=== PATIENT | female | born 1960 | race Caucasian/White ===

== ENCOUNTER 2023-04-23 12:39 | Emergency (ER) | payer BC, SELFPAY ==
[2023-04-23 12:56] VITALS: BP 142/85; PULSE 88; RESP 16; TEMP 36.8; O2SAT 95; BMI 24.3
--- NOTE | 2023-04-23 13:26 | CRLHL7_ITS ---
For Patients: As a result of the Century Cures Act, medical imaging exams and procedure reports are released immediately into your electronic medical record. You may view this report before your referring provider. If you have questions, please contact your health care provider. CLINICAL HISTORY: Left-sided facial numbness for 1 week. TECHNIQUE: Standard helical CT image acquisition of the brain was performed. COMPARISON: None available. FINDINGS: There is no intracranial hemorrhage, extra-axial collection, mass effect, or midline shift. Doty-white matter differentiation is preserved. The ventricles are normal in size and morphology for patient age. The calvarium is unremarkable. The orbits are unremarkable. The paranasal sinuses are unremarkable. The mastoid air cells are unremarkable. IMPRESSION: No CT evidence of acute intracranial abnormality. Please note that all CT scans at this facility use dose modulation, iterative reconstruction, and/or weight-based dosing when appropriate to reduce radiation dose to as low as reasonably achievable. Dictated by Hoang Ariza MD @ 04/23/2023 2:41:44 PM (Electronically Signed)
--- NOTE | 2023-04-23 13:26 | CRLHL7_ITS ---
For Patients: As a result of the Century Cures Act, medical imaging exams and procedure reports are released immediately into your electronic medical record. You may view this report before your referring provider. If you have questions, please contact your health care provider. CLINICAL HISTORY: Left-sided facial numbness for 1 week. TECHNIQUE: CTA neck with contrast bolus tracking. 3D angiographic rendering using maximum intensity projection (MIP) and images permanently archived. COMPARISON: None available. FINDINGS: The great vessels are patent. The common carotid arteries are patent. The proximal ICAs are patent without signficant stenoses by NASCET criteria. The more distal cervical ICAs are patent. The origins of the vertebral arteries are patent. The cervical segments of the vertebral arteries are patent. IMPRESSION: Patent cervical arterial vasculature without hemodynamically significant luminal stenosis. Please note that all CT scans at this facility use dose modulation, iterative reconstruction, and/or weight-based dosing when appropriate to reduce radiation dose to as low as reasonably achievable. Dictated by Hoang Ariza MD @ 04/23/2023 2:44:33 PM (Electronically Signed)
--- NOTE | 2023-04-23 13:26 | CRLHL7_ITS ---
For Patients: As a result of the Century Cures Act, medical imaging exams and procedure reports are released immediately into your electronic medical record. You may view this report before your referring provider. If you have questions, please contact your health care provider. CLINICAL HISTORY: Left-sided facial numbness for 1 week. TECHNIQUE: CTA head with contrast bolus tracking. 3D angiographic rendering using maximum intensity projection (MIP) and images permanently archived. COMPARISON: None available. FINDINGS: The petrous, cavernous, and supraclinoid segments of the internal carotid arteries are patent. The anterior and middle cerebral arteries are patent. The anterior communicating artery is visualized and is within normal limits. The intracranial vertebral arteries, basilar trunk, and posterior cerebral arteries are patent. No intracranial proximal large vessel occlusion or flow-limiting luminal stenosis. No evidence of cerebral aneurysm. No findings to suggest an arterial-venous shunting lesion. The major dural venous sinuses and deep venous system were patent. IMPRESSION: No intracranial proximal large vessel occlusion, flow-limiting luminal stenosis, or cerebral aneurysm. Please note that all CT scans at this facility use dose modulation, iterative reconstruction, and/or weight-based dosing when appropriate to reduce radiation dose to as low as reasonably achievable. Dictated by Hoang Ariza MD @ 04/23/2023 2:47:15 PM (Electronically Signed)
--- OUTSIDE RECORDS SUMMARY | 2023-04-23 13:45 | XMS_ITS | Patient Health Record ---
Author Name Unknown Organization [facility] Address [address] [place], [place] [id number] Care Team Providers Care Pulverizer Feeder Name Role Phone Ana Vickers Primary Care Provider [phone] ALLERGIES Allergen (clinical drug ingredient) Drug/Non Drug Allergy documented on EMR Reaction Allergy Type Onset Date Status sulfamethoxazole / trimethoprim Sulfamethoxazole-T rimethoprim Anaphylaxis-Ba kers Yeast Drug Allergy Active tetracycline Tetracycline HCl Rash Drug Allergy Active REASON FOR REFERRAL No Information MEDICATIONS Medication SIG (Take, Route, Frequency, Duration) Notes Start Date End Date Status Multivitamin Adults - as directed Orally Active Biotin 800 MCG 1 tablet Orally Once a day for 30 day(s) Active Vitamin B12 1000 MCG 1 tablet Orally Once a day for 30 day(s) Active Cream Base - as directed Externally steroid cream for cutaneous lupus Active Misc Natural Product Progesteron e 150mg/Testosterone 0.5mg Trit, dissolve once daily Active Vitamin D3 1000 UNIT 1 tablet Orally Once a day for 30 day(s) Active Misc Natural Products - as directed Orally Bi Estradiol 2.75mg Trit, dissolve once daily Active SOCIAL HISTORY Tobacco Use: Social History Observation Description Date Details (start date - stop date) Never Smoker NA - NA Sex Assigned At : Social History Observation Description Sex Assigned At Unknown Tobacco Use/Smoking Question Answer Notes Are you a nonsmoker PROBLEMS Problem Type ICD Code Onset Dates Problem Status W/U Status Risk SNOMED Code Notes Problem Menopausal and female climacteric states (N95.1) Active confirmed [id number] PLAN OF TREATMENT No Information Insurance Providers Payer Name Payer Address Payer Phone Subscriber Number Group Number Insured Name Patient Relationship to Insured Coverage Start Date Coverage End Date [employer] [address] [address] [place], [place] [id number] Dawna Longoria Self - patient is the insured MEDICAL (GENERAL) HISTORY Medical History History ICD Code Cutaneous Lupus Borderline Diabetic Surgical History Surgery Date(Month/Year) Gall bladder removal 2017 Umbilical Hernia Repair with mesh Supra cervical Hysterectomy w/left oopha rectomy 2003
--- NOTE | 2023-04-23 13:48 | ED_ITS ---
HPI - Neuro Symptoms/Deficit General Date Seen: 04/23/23 Chief Complaint: Neuro Symptoms/Altered Deficit Stated Complaint: Numbness in face and L calf Time Seen by Provider: 04/23/23 13:09 Source: patient and family Mode of arrival: ambulatory Limitations: no limitations History of Present Illness HPI Narrative: Patient is a evelyne 62-year-old female presents here for evaluation of left-si ded facial numbness, intermittently, and left anterior briones altered sensation. She describes this is coming and going, not together. Mostly on the face. In the M 3 mandibular distribution. Not associated with any weakness any problems speaking, no pain of her face, any year discomfort, fevers chills or sweats, no past history of TIAs strokes, cardiac conditions. Her mother however does have a history of TIAs, her mother did smoke, but also had these and she was a little bit older than her. She is going on a trip to [facility], with her who is accompanying her, and they would like to get this checked out. She has noted no changes so seated with exertion. Or time of day. No history of diabetes hypertension, or other cardiac risk factors are history of heart disease. She does have a small history of back pain, but no documented disc issues. Treatments Prior to Arrival: none Related Data Home Medications Medication Instructions Recorded Confirmed alprazolam 0.5 mg tablet 0.5 mg PO BID PRN 07/06/22 04/23/23 cholecalciferol (vitamin D3) 50 50 mcg PO QDAY 07/06/22 04/23/23 mcg (2,000 unit) capsule cyanocobalamin (vitamin B-12) 500 500 mcg PO DAILY 07/06/22 04/23/23 mcg tablet hydrocortisone 2.5 % topical cream 1 applic topical BID PRN 01/10/23 04/23/23 pimecrolimus 1 % topical cream 1 applic topical PRN 01/10/23 01/10/23 Previous Rx's Medication Instructions Recorded lwqzzixhoz-pskfulmmzxxtn-rmzscyub 1 - 2 cap PO Q4-6H PRN pain #30 07/06/22 50 mg-300 mg-40 mg capsule caps Allergies Allergy/AdvReac Type Severity Reaction Status Date / Time Sulfa (Sulfonamide Allergy Severe Anaphylaxis Verified 04/23/23 14:23 Antibiotics) fluconazole Allergy Mild Hives Verified 04/23/23 14:23 tetracycline Allergy Mild Hives Verified 04/23/23 14:23 INHALANT ANESTHESIA Allergy Intermediate Severe Uncoded 04/23/23 14:23 nausea only Pertussis vaccine Allergy Unknown Son is Uncoded 04/23/23 14:23 severely allergic she was told not to get pertussis Clavulanate AdvReac Severe Vomiting Uncoded 04/23/23 14:23 Neostrata Bionic face cream AdvReac Intermediate Rash Uncoded 04/23/23 14:23 Review of Systems Status of ROS: Reports: 10 or more systems reviewed and unremarkable except as noted in History and below PFSH [facility] Medical History Preventative health care ?Z00.00 - Encounter for general adult medical examination without abnormal findings (ICD-10) Family history of von Willebrand disease ?Z83.2 - Family history of diseases of the blood and blood-forming organs and certain disorders involving the immune mechanism (ICD-10) Candidal vulvovaginitis ?B37.31 - Acute candidiasis of vulva and vagina (ICD-10) Vaginitis ?N76.0 - Acute vaginitis (ICD-10) Seborrheic keratosis ?L82.1 - Other seborrheic keratosis (ICD-10) Right shoulder pain ?M25.511 - Pain in right shoulder (ICD-10) Recurrent epistaxis ?R04.0 - Epistaxis (ICD-10) Mitral valve sclerosis ?I05.8 - Other rheumatic mitral valve diseases (ICD-10) Lupus erythematosus ?L93.0 - Discoid lupus erythematosus (ICD-10) Inflamed seborrheic keratosis ?L82.0 - Inflamed seborrheic keratosis (ICD-10) Encounter for examination following surgery ?Z09 - Encounter for follow-up examination after completed treatment for conditions other than malignant neoplasm (ICD-10) Surgical History S/P ORIF (open reduction internal fixation) fracture (09/01/21) ?Z98.890 - Other specified postprocedural states (ICD-10) ?Z87.81 - Personal history of (healed) traumatic fracture (ICD-10) History of umbilical hernia repair ?Z98.890 - Other specified postprocedural states (ICD-10) ?Z87.19 - Personal history of other diseases of the digestive system (ICD-10) History of laparoscopic cholecystectomy ?Z90.49 - Acquired absence of other specified parts of digestive tract (ICD- 10) History of hysterectomy with oophorectomy History of esophagogastroduodenoscopy (EGD) ?Z98.890 - Other specified postprocedural states (ICD-10) Family History Mother Breast cancer Stroke Diabetes High blood pressure Heart disease History of hyperlipidemia Family/Other Breast cancer Social History Narrative: Does not use illicit drugs Non-smoker Occasional alcohol consumption Smoking Status: Unknown if ever smoked Do you use any of these nicotine containing products: None Second hand tobacco smoke exposure: No How often do you have a drink containing alcohol: monthly or less AUDIT-C Alcohol total score: 1 Non-prescribed substance use: denies use Little interest or pleasure in doing things: not at all Feeling down, depressed, or hopeless: not at all Exam Narrative: Exam Narrative: Patient is a very nice lady she is seen in room 6 she appears to be in no distress she is eloquent and articulate when I review her. Her vital signs are normal. Pupils are equal round reactive to light there is no nystagmus, fundi appear normally. TMs are normal bilaterally no evidence of any redness rashes, she has sensation noted over the M1 through M 3 dermatomes, but it is a little bit different from lower to upper. She is able to whistle for me her tongue protrudes normally, and her cranial nerves of from 3-12 are normal. Carotid upstrokes are equal bilaterally and there is no bruits, her neck is supple, excellent range of motion and neck flexion extension lateral flexion rotation is normal, no palpable tenderness over her head. Her gravity meter observer strengths are normal bilaterally finger-nose testing is normal bilaterally, finger abduction is normal, wrist dorsiflexion 1st finger thumb opposition biceps triceps power and shoulder abduction are all normal. 5/5. Pulses are normal in upper extremities, her heart sounds are normal, no clicks murmurs or gallops, and nice and regular. Lower extremities show no evidence of any abnormality, muscle tone is and symmetry is normal bilaterally, SLR is are negative to 90? she is able to walk, with heels and toe for me normally, forward flexion extension lateral flexion and rotation of her lumbar spine are all normal. She has normal EHLs, great toe flexors, knee flexors 10 sirs and hip flexors, Const: Vital Signs, click to edit/add: Vital Signs - 24 hr 04/23/23 12:56 Temperature 98.3 F Pulse Rate [Pulse Oximeter] 88 Respiratory Rate 16 Blood Pressure [Ri ght Upper Arm] 142/85 H Pulse Oximetry 95 Oxygen Delivery Me thod Room Air Documenting provider has reviewed patient's vital signs: yes Course Course ED Course: I had a long talk with her examination is reassuring and she has paresthesias her face and lower leg. CT scan does not show any large vessel occlusion or any problem with the blood vessels, or tumors. I think it would be reasonable to have her follow-up with Neurology. Consider other alternative diagnosis is as says MS. She was comfortable with this. I do not think this is related to stroke-like situation. Vital Signs Vital signs: Initial Vital Signs Temperature 98.3 F 04/23/23 12:56 Temperature Source Temporal Artery Scan 04/23/23 12:56 Pulse Rate 88 04/23/23 12:56 Pulse Rhythm Regular 04/23/23 12:56 Respiratory Rate 16 04/23/23 12:56 Blood Pressure 142/85 H 04/23/23 12:56 Blood Pressure Mean 104 04/23/23 12:56 Blood Pressure Position Sitting 04/23/23 12:56 Pulse Oximetry 95 04/23/23 12:56 Oxygen Delivery Method Room Air 04/23/23 12:56 Vital Signs Temperature 98.3 F 04/23/23 12:56 Pulse Rate 88 04/23/23 12:56 Respiratory Rate 16 04/23/23 12:56 Blood Pressure 142/85 H 04/23/23 12:56 Pulse Oximetry 95 04/23/23 12:56 Oxygen Delivery Method Room Air 04/23/23 12:56 Temperature 98.3 F 04/23/23 12:56 Pulse Rate 88 04/23/23 12:56 Respiratory Rate 16 04/23/23 12:56 Blood Pressure 142/85 H 04/23/23 12:56 Pulse Oximetry 95 04/23/23 12:56 Oxygen Delivery Method Room Air 04/23/23 12:56 MDM - Neuro Symptoms/Deficit MDM Narrative Medical decision making narrative: I explained to her I do not see evidence of a stroke, would be purely sensory if this is on off. TIA. But I do think doing a head CT, with a CTA of head neck is appropriate. Medical Records Attestation: I reviewed the patient's medical records. Lab Data Attestation: I reviewed the patient's lab results. Labs: Lab Results 04/23/23 Range/Units 13:58 POC Creatinine 0.7 (0.6-1.3) mg/dl Imaging Data Head CT: Attestation: I have reviewed the pertinent imaging results. My impression: No acute change Radiologist's impression: Patient: [facility] Facility: [facility] . Site : 1960 Study: CT Head W/O NON ACUTE-04/23/2023 2:19:17 PM Ordering Physician: Katia Mclean Final Report: CLINICAL HISTORY: Left-sided facial numbness for 1 week. TECHNIQUE: Standard helical CT image acquisition of the brain was performed. COMPARISON: None available. FINDINGS: There is no intracranial hemorrhage, extra-axial collection, mass effect, or midline shift. Doty-white matter differentiation is preserved. The ventricles are normal in size and morphology for patient age. The calvarium is unremarkable. The orbits are unremarkable. The paranasal sinuses are unremarkable. The mastoid air cells are unremarkable. IMPRESSION: No CT evidence of acute intracranial abnormality. Please note that all CT scans at this facility use dose modulation, iterative reconstruction, and/or weight-based dosing when appropriate to reduce radiation dose to as low as reasonably achievable. Dictated by Hoang Ariza MD @ 04/23/2023 2:41:44 PM (Electronic Signature) Patient: [facility] Facility: [facility] . Site : 1960 Study: CT Neck Angio Angio 95 CC NON ACUTE-04/23/2023 2:20:18 PM Ordering Physician: Katia Mclean Final Report: CLINICAL HISTORY: Left-sided facial numbness for 1 week. TECHNIQUE: CTA neck with contrast bolus tracking. 3D angiographic rendering using maximum intensity projection (MIP) and images permanently archived. COMPARISON: None available. FINDINGS: The great vessels are patent. The common carotid arteries are patent. The proximal ICAs are patent without signficant stenoses by NASCET criteria. The more distal cervical ICAs are patent. The origins of the vertebral arteries are patent. The cervical segments of the vertebral arteries are patent. IMPRESSION: Patent cervical arterial vasculature without hemodynamically significant luminal stenosis. Please note that all CT scans at this facility use dose modulation, iterative reconstruction, and/or weight-based dosing when appropriate to reduce radiation dose to as low as reasonably achievable. Dictated by Hoang Ariza MD @ 04/23/2023 2:44:33 PM (Electronic Signature) Patient: MICHAELA YANEZ Facility: [facility] . Site : 1960 Study: CT Head Angio 95CC ISOVUE 370NON ACUTE-04/23/2023 2:21:34 PM Ordering Physician: Katia Mclean Final Report: CLINICAL HISTORY: Left-sided facial numbness for 1 week. TECHNIQUE: CTA head with contrast bolus tracking. 3D angiographic rendering using maximum intensity projection (MIP) and images permanently archived. COMPARISON: None available. FINDINGS: The petrous, cavernous, and supraclinoid segments of the internal carotid arteries are patent. The anterior and middle cerebral arteries are patent. The anterior communicating artery is visualized and is within normal limits. The intracranial vertebral arteries, basilar trunk, and posterior cerebral arteries are patent. No intracranial proximal large vessel occlusion or flow-limiting luminal stenosis. No evidence of cerebral aneurysm. No findings to suggest an arterial- venous shunting lesion. The major dural venous sinuses and deep venous system were patent. IMPRESSION: No intracranial proximal large vessel occlusion, flow-limiting luminal stenosis, or cerebral aneurysm. Please note that all CT scans at this facility use dose modulation, iterative reconstruction, and/or weight-based dosing when appropriate to reduce radiation dose to as low as reasonably achievable. Dictated by Hoang Ariza MD @ 04/23/2023 2:47:15 PM (Electronic Signature) Discharge Plan Discharge Clinical Impression: Left facial numbness Patient Disposition: Home w/ Parent or Adult Condition: Stable Instructions: Paresthesia (ED) Additional Instructions: Discussed with patient and significant other, no evidence of stroke, no evidence vessel occlusion either partial or total, and CTA no evidence of, mass. Her examination is very reassuring, and I explained to her that at this time I think we can discharge her. I do think if it is ongoing that she will need to follow- up with neurology consider alternative diagnosis such as MS. Went over signs symptoms of worsening, and she will re-presented if these occur Activity Level: Light activity Prescriptions: No Action cyanocobalamin (vitamin B-12) 500 mcg tablet 500 mcg PO DAILY cholecalciferol (vitamin D3) 50 mcg (2,000 unit) capsule 50 mcg PO QDAY alprazolam 0.5 mg tablet 0.5 mg PO BID PRN Rx Instructions: 1/2 to 1 tab as needed for anxiety/panic attacks. gtlkfpbmrp-qksbqkhmspbus-afbg 50-300-40 mg capsule 1 - 2 cap PO Q4-6H MDD 4 PRN (Reason: pain) Qty: 30 0RF Rx Instructions: MAX 6/DAY hydrocortisone 2.5 % cream 1 applic topical BID PRN pimecrolimus 1 % cream 1 applic topical PRN Follow Up/Referrals: Shelli Garay MD [Primary Care Provider] - Stand Alone Forms: [employer] Info Instructions
[2023-04-23 13:59] LABS: Creatinine, Point-of-Care* 0.7 mg/dl (0.6-1.3)
== END 2023-04-23 16:09 | disposition home or self-care (01) ==
PROVIDERS: Emergency Provider Family Medicine; PCP Emergency Medicine
DX: R20.0 Anesthesia of skin (principal)
CPT/HCPCS: 70450; 70496; 70498; 82565; 99284; 99285; Q9967

== ENCOUNTER 2023-08-08 10:59 | Outpatient (CLI) | payer BC, SELFPAY ==
[2023-08-10 23:58] LABS: Lyme ELISA Reflex 0.54 IV (<=0.90)
== END 2023-08-08 11:00 | disposition home or self-care (01) ==
PROVIDERS: PCP Emergency Medicine; Visit Provider Emergency Medicine
DX: Z00.00 Encounter for general adult medical examination without abnormal findings (principal); R20.2 Paresthesia of skin
CPT/HCPCS: 82607; 84443; 86618

== ENCOUNTER 2023-10-09 17:50 | Outpatient (CLI) | payer BC, SELFPAY | END 2023-10-09 17:51 | disposition home or self-care (01) | PROVIDERS: PCP Emergency Medicine; Visit Provider Emergency Medicine | DX: R10.9 Unspecified abdominal pain (principal) | CPT/HCPCS: 80053; 83690; 86140 ==

== ENCOUNTER 2023-10-16 08:06 | Outpatient (CLI) | payer BC, SELFPAY ==
--- NOTE | 2023-10-16 09:00 | CT_ITS ---
Patient: MICHAELA YANEZ Facility:?[facility] Patient ID:?[id number] Site Patient ID:?[id number] Site :?1960 Study:?CT-Abdomen/Pelvis W/ 80CC ISOVUE 370-10/16/2023 8:55:10 AM Ordering Physician:NILSA Final Report: Indication: Right lower quadrant pain Technique: CT Abdomen/Pelvis W/ 80CC ISOVUE 370 Please note that all CT scans at this facility use dose modulation, iterative reconstruction, and/or weight-based dosing when appropriate to reduce radiation dose to as low as reasonably achievable. Comparison: None Findings: Linear areas of scarring are present within the left lung base. No pleural effusion is present. Hepatic steatosis is present. No intrahepatic mass. Calcified splenic granulomas are present. Gallbladder is absent. No biliary obstruction. Pancreas is normal. Normal adrenal glands. Kidneys are normal. Normal bladder. Postop changes of hysterectomy. Benign cystic change associated with the vaginal cuff. No adnexal mass. Mild colonic diverticulosis. No diverticulitis. No bowel obstruction. The appendix is well visualized and is within normal limits. Normal ileum. No evidence of inflammatory bowel disease. No recurrent abdominal wall hernia. No adenopathy. Postop changes to the periumbilical tissues noted. No postop seroma or abscess. No fracture. Minimal degenerative changes. Impression: Normal appendix. No bowel obstruction or inflammatory changes. Hepatic steatosis. Status post cholecystectomy and hysterectomy. Status post umbilical hernia repair. No recurrent hernia. No acute findings. Please note that all CT scans at this facility use dose modulation, iterative reconstruction, and/or weight-based dosing when appropriate to reduce radiation dose to as low as reasonably achievable. Dictated by Geraldo Lala MD @ 10/16/2023 9:06:49 AM Signed by:?Geraldo Lala MD @10/16/2023 9:06:49 AM (Electronic Signature)
== END 2023-10-16 08:07 | disposition home or self-care (01) ==
LOC: CT 08:06
PROVIDERS: PCP Emergency Medicine; Visit Provider Emergency Medicine
DX: R10.11 Right upper quadrant pain (principal); K76.0 Fatty (change of) liver, not elsewhere classified
CPT/HCPCS: 74177; Q9967

== ENCOUNTER 2024-01-14 20:40 | Emergency (ER) | payer BC, SELFPAY ==
[2024-01-14 21:00] VITALS: BP 174/98; PULSE 96; RESP 16; TEMP 36.3; O2SAT 99; BMI 24.2
--- NOTE | 2024-01-14 21:47 | ED_ITS ---
HPI - General Adult General Chief complaint: Animal Bite Stated complaint: Dog bite R leg Time Seen by Provider: 01/14/24 21:46 History of Present Illness HPI narrative: neighbors dog bit R jessi, about 40 minutes ago. dog with hx of aggression, animal care specialist of dog reports dog is vaccinated. patient has hx of surgery on the R leg and called nurse triage line and was advised to be seen. 2 puncture wounds on R calf. 63-year-old woman presenting with her to the emergency department after sustaining a bite by a dog to her right leg. This is a known dog of the neighbors. Has been known to bite other people before. Apparently ?crazy?. Is not complaining of significant pain. A tetanus vaccine last at 2018. Dog has been noted to have a rabies tag; sounds like it is current. Of concern is the fact that she has had surgery with hardware on the right leg. Certainly do not get infected in a trip they are taking this week heading out with a trailer for couple of weeks to [place] partly to attend a wedding in the [facility]. Related Data Home Medications ?Medication ?Instructions ?Recorded ?Confirmed cholecalciferol (vitamin D3) 50 50 mcg PO QDAY 07/06/22 01/14/24 mcg (2,000 unit) capsule Eye drops ophthalmic (eye) 07/04/23 01/14/24 testosterone 50 mg implant pellet mg implant 08/15/23 01/14/24 fluticasone propionate 50 1 spray intranasal QDAY 09/12/23 01/14/24 mcg/actuation nasal spray,suspension (Allergy Relief (fluticasone)) progesterone micronized 100 mg 100 mg PO QPM 09/12/23 01/14/24 capsule Estrogen/Test PO 01/14/24 Previous Rx's ?Medication ?Instructions ?Recorded uwkewlwnpz-alkkilgtebcoo-mnutozdu 1 - 2 cap PO Q4-6H PRN pain #30 08/08/23 50 mg-300 mg-40 mg capsule caps alprazolam 0.5 mg tablet 0.5 mg PO BID PRN anxiety #15 tabs 08/15/23 cephalexin 500 mg capsule 500 mg PO TID #24 caps 01/14/24 Allergies Allergy/AdvReac Type Severity Reaction Status Date / Time Sulfa (Sulfonamide Allergy Severe Anaphylaxis Verified 01/14/24 14:37 Antibiotics) fluconazole Allergy Mild Hives Verified 01/14/24 14:37 tetracycline Allergy Mild Hives Verified 01/14/24 14:37 INHALANT ANESTHESIA Allergy Intermediate Severe Uncoded 01/14/24 14:37 nausea only Pertussis vaccine Allergy Unknown Son is Uncoded 01/14/24 14:37 severely allergic she was told not to get pertussis Clavulanate AdvReac Severe Vomiting Uncoded 01/14/24 14:37 Neostrata Bionic face cream AdvReac Intermediate Rash Uncoded 01/14/24 14:37 Review of Systems Status of ROS: Reports: 6 or more systems reviewed and unremarkable except as noted in History and below [facility] Medical History 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 ?T70.29XA - Other effects of high altitude, initial encounter (ICD-10) Mild intermittent asthma ?J45.20 - Mild intermittent asthma, uncomplicated (ICD-10) Normal stress echocardiography Family history of von Willebrand disease ?Z83.2 - Family history of diseases of the blood and blood-forming organs and certain disorders involving the immune mechanism (ICD-10) COVID-19 (~05/05/23) ?U07.1 - COVID-19 (ICD-10) Recurrent epistaxis ?R04.0 - Epistaxis (ICD-10) Mitral valve sclerosis ?I05.8 - Other rheumatic mitral valve diseases (ICD-10) Surgical History S/P ORIF (open reduction internal fixation) fracture (09/01/21) ?Z98.890 - Other specified postprocedural states (ICD-10) ?Z87.81 - Personal history of (healed) traumatic fracture (ICD-10) History of umbilical hernia repair ?Z98.890 - Other specified postprocedural states (ICD-10) ?Z87.19 - Personal history of other diseases of the digestive system (ICD-10) History of laparoscopic cholecystectomy ?Z90.49 - Acquired absence of other specified parts of digestive tract (ICD- 10) History of hysterectomy with oophorectomy History of esophagogastroduodenoscopy (EGD) ?Z98.890 - Other specified postprocedural states (ICD-10) Family History Mother Breast cancer Stroke Diabetes High blood pressure Heart disease History of hyperlipidemia Family/Other Breast cancer Social History Narrative: Does not use illicit drugs Non-smoker Occasional alcohol consumption Smoking Status: Unknown if ever smoked Do you use any of these nicotine containing products: None Second hand tobacco smoke exposure: No How often do you have a drink containing alcohol: monthly or less AUDIT-C Alcohol total score: 1 Non-prescribed substance use: denies use Little interest or pleasure in doing things: not at all Feeling down, depressed, or hopeless: not at all Exam Narrative: Exam Narrative: Very pleasant. Laughs easily. NAD. Skin is warm and dry. Only area of injury appears to be the right lower mid calf area little bit lateral is 1 laceration/puncture about a cm in length and more posterior also in the distal 3rd of the calf is another of similar size. Both her gapping. Bleed lightly when manipulated. Well-perfused in this extremity otherwise. Const: Vital Signs, click to edit/add: Vital Signs - 24 hr 01/14/24 21:00 Temperature 97.4 F L Pulse Rate [Pulse Oximeter] 96 Respiratory Rate 16 Blood Pressure [Ri ght Upper Arm] 174/98 H Pulse Oximetry 99 Oxygen Delivery Me thod Room Air Documenting provider has reviewed patient's vital signs: yes Course Vital Signs Vital signs: Initial Vital Signs Temperature 97.4 F L 01/14/24 21:00 Temperature Source Temporal Artery Scan 01/14/24 21:00 Pulse Rate 96 01/14/24 21:00 Respiratory Rate 16 01/14/24 21:00 Blood Pressure 174/98 H 01/14/24 21:00 Blood Pressure Mean 123 H 01/14/24 21:00 Blood Pressure Position Sitting 01/14/24 21:00 Pulse Oximetry 99 01/14/24 21:00 Oxygen Delivery Method Room Air 01/14/24 21:00 Vital Signs Temperature 97.4 F L 01/14/24 21:00 Pulse Rate 96 01/14/24 21:00 Respiratory Rate 16 01/14/24 21:00 Blood Pressure 174/98 H 01/14/24 21:00 Pulse Oximetry 99 01/14/24 21:00 Oxygen Delivery Method Room Air 01/14/24 21:00 Temperature 97.4 F L 01/14/24 21:00 Pulse Rate 96 01/14/24 21:00 Respiratory Rate 16 01/14/24 21:00 Blood Pressure 174/98 H 01/14/24 21:00 Pulse Oximetry 99 01/14/24 21:00 Oxygen Delivery Method Room Air 01/14/24 21:00 Medications Administered Medications: Discontinued Medications Generic Name Dose Route Start Last Admin Trade Name Laura PRN Reason Stop Dose Admin Lidocaine/Epinephrine 5 ml 01/14/24 21:52 01/14/24 22:06 Lidocaine 1%-Epi 1:100,000 20 Ml INFILTRATI 01/14/24 21:53 5 ml ONCE ONE Administration Medical Decision Making MDM Narrative Medical decision making narrative: Will need some pressure irrigation. Dog is owned/in custody in can be observed but it sounds as though this was not unexpected bite and the dog is vaccinated. Tetanus again is up-to-date. Returned to inject with lidocaine with epinephrine. Excellent wound anesthetic achieved. Irrigated under pressure approximately 80 mL of normal saline. Sutured a little loosely with 4-0 Ethilon sutures interrupted. Antibiotic ointment and Band-Aid placed. There was concern of prophylaxis verses treatment for infection if becomes necessary. I do not think needs prophylaxis here. Understand their concerns about developing infection in leg considering her hardware. And considering they are traveling for a couple of weeks at least, did make available an antibiotic prescription. Would do well though to raise leg at rest and monitor closely. See patient discharge plan for further discussion/plan Medical Records Medical records reviewed: Yes I reviewed the patient's medical records Discharge Plan Discharge Clinical Impression: Dog bite, Laceration of leg Patient Disposition: Home, Self-Care Condition: Improved Additional Instructions: As you probably know, animals are monitored for 10 days following a bite for any indication of rabies. Sounds as though this dog was vaccinated however. sutures out in 12 days. antibiotic ointment for 6 days and then to a dry dressing. ok to get wet but try not to soak while sutures are in. Over the next few days sure to be elevating your leg at rest. for further scar reduction/wound healing if desired -- after the scab falls off, can apply daily vitamin e oil, or something like maderma or silicone-containing ointments or bandaids daily. especially protect from sun exposure for the first 9 - 12 months. Watch for spreading redness after 2 days accompanied by heat, swelling, marked increase in pain, purulent drainage. While I do not think you probably need to prophylax this wound, I am sending in cephalexin antibiotic to your pharmacy to have on hand as discussed. Prescriptions: New cephalexin 500 mg capsule 500 mg PO TID Qty: 24 0RF No Action cholecalciferol (vitamin D3) 50 mcg (2,000 unit) capsule 50 mcg PO QDAY progesterone micronized 100 mg capsule 100 mg PO QPM fluticasone propionate [Allergy Relief (fluticasone)] 50 mcg/actuation spray,suspension 1 spray intranasal QDAY Rx Instructions: administer into each nostril Eye drops ophthalmic (eye) Patient Comments: OTC qvwibfcbtk-cwlqkglearucf-ehkv 50-300-40 mg capsule 1 - 2 cap PO Q4-6H MDD 4 PRN (Reason: pain) Qty: 30 0RF Rx Instructions: MAX 6/DAY Estrogen/Test PO alprazolam 0.5 mg tablet 0.5 mg PO BID PRN (Reason: anxiety) Qty: 15 0RF Rx Instructions: 1/2 to 1 tab as needed for anxiety/panic attacks. testosterone 50 mg pellet implant Follow Up/Referrals: Shelli Garay MD [Primary Care Provider] - Stand Alone Forms: [employer] Info Instructions
== END 2024-01-14 22:40 | disposition home or self-care (01) ==
PROVIDERS: Emergency Provider Family Medicine; PCP Emergency Medicine
DX: S81.811A Laceration without foreign body, right lower leg, initial encounter (principal); W54.0XXA Bitten by dog, initial encounter
CPT/HCPCS: 12001; 99283; 99284

== ENCOUNTER 2024-03-13 09:21 | Outpatient (CLI) | payer BC, SELFPAY ==
--- OUTSIDE RECORDS SUMMARY | 2024-03-13 09:24 | XMS_ITS | Clinical Summary ---
Author Organization [facility] Address [address], [place] [address] Care Team Providers Care Offset Printing Operator Name Role Phone Pcp, Pt Romero VALDEZ Primary Care Provider [phone] Source Comments You are receiving this document as you are listed as the primary care provider,follow-up provider, or the patient has been referred to you for consultation.This is in compliance with the Medicare andRegional Medical Centercaid EHR Incentive Program,which states Providers who transition their patient to another setting of careor provider of care or refers their patient to another provider of care shouldprovide summary care record for each transition of care or referral. [employer] Allergies Active Allergy Reactions Criticality Noted Date Comments Doxycycline 08/23/2010 PN: LW Reaction: Rash, Generalized Fluconazole 10/12/2010 Other reaction(s): Other (see comments) Sick feeling and lightheadedness. Hydroxychloroquine Chest Pain 04/06/2021 Chest discomfort and poor sleep Pertussis Vaccines 03/04/2018 Sulfa Antibiotics 08/23/2010 PN: LW Reaction: ANAPHYLAXIS Tetracyclines & Related Rash High 12/03/2013 Medications Medication Sig Dispensed Refills Start Date End Date Status Multiple Vitamins-Minerals (MULTIVITAMIN ADULT OR) Take 1 tablet by mouth daily (every 24 hours). 12/03/2013 Active cholecalciferol (VITAMIN D3) 2000 units capsule Take 1,000 mg by mouth. Active diclofenac (VOLTAREN) 1 % gel Apply 2 g to skin 4 times daily as needed for Other (hand, knee, other joint pain). 100 g 3 12/01/2020 Active Vxhusoeany-PRVS-Qlwwy ine 50-300-40 MG CAPS TAKE 1-2 capsules BY MOUTH EVERY 4-6 HOURS NEEDED FOR PAIN. max 6 per day. Active olopatadine 0.1 % eye drop solution Place 1 Drop into both eyes two times a day. 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 Bilateral carpal tunnel syndrome 03/27/2018 Rotator cuff tendinitis 11/15/2015 Radicular pain 11/15/2015 Immunizations Name Administration Dates Next Due Influenza, Unspecified Formulation 05/26/2020 Pfizer Monovalent 12+ Purple Top 11/20/2020,10/05 Social History Tobacco Use Types Packs/Day Years Used Date Smoking Tobacco: Former Cigarettes Q uit: 12/25/1983 Smokeless Tobacco: Never Alcohol Use Standard Drinks/Week Comments Yes 0 (1 standard drink = 0.6 oz pur e alcohol) Sex and Gender Information Value Date Recorded Sex Assigned at Not on file Gender Identity Not on file Sexual Orientation Not on file Last Filed Vital Signs Vital Sign Reading Time Taken Comments Blood Pressure 152/85 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 Pulse 86 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 Temperature 35.6 ??C (96 ??F) 12/05/2021 9:35 AM CDT Respiratory Rate - - Oxygen Saturation - - Inhaled Oxygen Concentration - - Weight 73.9 kg (162 lb 14.4 oz) 024 11:11 AM [employer]PER[employer]ENT [employer] Height 170.2 cm (5' 7) 11/22/2015 11:0 0 AM CDT Body Mass Index 25.51 11/22/2015 11:00 AM CDT Plan of Treatment Health Maintenance Due Date Last Done Comments Cervical Cancer Screening Due 1960 Colon Cancer Screening Plan Due 1960 Hep C Screening (Preventive Services) 1960 HIV Screening (Preventive Services) 1976 Adult Preventive Visit 1978 Cholesterol 2005 DTaP/Tdap/Td (1 - Tdap) 06/19/2018 06/18/20 18, 03/30/2010, 03/30/2010, Additional history exists Mammogram 01/26/2023 01/26/2022, 01/05, 09/09/2019, Additional history exists Influenza (#1) 2024 07/11/2023, 06/07, 08/02/2021, Additional history exists HepA Aged Out 06/18/2018, 05/04/2014 No lo nger eligible based on patient's age to complete this topic Zoster/Shingles Completed 01/27/2019, 06/18/2018 COVID-19 Vaccine Completed 08/13/2023, , 06/02/2021, Additional history exists HepB Aged Out No longer eligi ble based on patient's age to complete this topic Hib Aged Out No longer eligi ble based on patient's age to complete this topic IPV (Polio) Aged Out No longer eligi ble based on patient's age to complete this topic MCV4 Aged Out No longer eligi ble based on patient's age to complete this topic Pneumococcal Aged Out No longer eligi ble based on patient's age to complete this topic Procedures Procedure Name Priority Date/Time Associated Diagnosis Comments MM MAMMOGRAM SCREENING BILAT W 3D ALBERTO W CAD Routine 01/26/2022 11:42 AM CDT from Last 3 Months or Most Recently Relevant to Health Maintenance Care Teams Offset Printing Operator Relationship Specialty Start Date End Date Pcp, [place] [address] PCP - General 12/24/13
--- OUTSIDE RECORDS SUMMARY | 2024-03-13 09:24 | XMS_ITS | Clinical Summary ---
Author Organization [facility] Address [address] [place] [id number] Care Team Providers Care Day Care Teacher Name Role Phone Aldo Arreaga Primary Care Provider Allergies Active Allergy Reactions Criticality Noted Date Comments Doxycycline 08/30/2016 PN: LW Reaction: Rash, Generalized Seasonal Allergies 08/30/2016 sediation Sulfa Antibiotics Unknown 08/30/2016 PN: LW Reaction: ANAPHYLAXIS Tetracycline Rash Low 08/31/2016 Tetracyclines & Related Rash High 08/30/2016 Medications Medication Sig Dispensed Refills Start Date End Date Status Pediatric Multiple Vit-C-FA (MULTIVITAMIN CHILDRENS) CHEW Take 1 chew tab by mouth every morning Active albuterol (PROAIR HFA/PROVENTIL HFA/VENTOLIN HFA) 108 (90 BASE) MCG/ACT Inhaler Inhale 2 puffs into the lungs every 4 hours as needed for shortness of breath / dyspnea or wheezing Active omeprazole (PRILOSEC) 40 MG capsule Take 40 mg by mouth every morning (before breakfast) Active NONFORMULARY Place under the tongue daily Pt is using Bio-identical Hormones: Testosterone, Progesterone, Estrogen, 1 tab daily of each, SL formulation Active Active Problems Problem Noted Date Diagnosed Date Cholecystitis 01/07/2017 Social History Tobacco Use Types Packs/Day Years Used Date Smoking Tobacco: Never Smokeless Tobacco: Never Tobacco Cessation:Counseling Given: No Alcohol Use Standard Drinks/Week Comments Yes 0 (1 standard drink = 0.6 oz pur e alcohol) occasional with dinner Adolescent Education Answer Date Record ed Getting School Help Needed Not on file 01/13 Sex and Gender Information Value Date Recorded Sex Assigned at Not on file Gender Identity Not on file Sexual Orientation Not on file Last Filed Vital Signs Vital Sign Reading Time Taken Comments Blood Pressure 124/76 12/09/2018 11:06 AM CDT Pulse 83 11/19/2018 12:38 AM CDT Temperature 36.4 ??C (97.5 ??F) 11/19/2018 12:38 AM C DT Respiratory Rate 16 11/19/2018 12:38 AM CDT Oxygen Saturation 96% 11/19/2018 12:38 AM CDT Inhaled Oxygen Concentration - - Weight 71.7 kg (158 lb) 12/09/2018 11:06 AM CDT Height 172.7 cm (5' 8) 12/09/2018 11:06 AM CDT Body Mass Index 24.02 12/09/2018 11:06 AM CDT Plan of Treatment Not on file Advance Directives For more information, please contact: [phone] * Full Code (Latest Code Status on File) Date Activated Date Inactivated Comments 01/08/2017 8:19 AM 11/19/2018 12:27 AM * Full Code Date Activated Date Inactivated Comments 01/07/2017 10:38 PM 01/08/2017 8:19 AM Care Teams Day Care Teacher Relationship Specialty Start Date End Date Aldo Arreaga [id number] [address] PCP - General Family Practice 07/28/15
--- OUTSIDE RECORDS SUMMARY | 2024-03-13 09:24 | XMS_ITS | Referral Summary ---
Author Organization [facility] Address [address] [place] [address] Care Team Providers Care Relay Mechanic Name Role Phone Aldo Arreaga Primary Care Provider [phone] Allergies Active Allergy Reactions Criticality Noted Date [...] Advance Directives For more information, please contact: [phone] * Full Code (Latest Code Status on File) Date Activated Date Inactivated Comments 01/08/2017 8:19 AM 11/19/2018 12:27 AM * Full Code Date Activated Date Inactivated Comments 01/07/2017 10:38 PM 01/08/2017 8:19 AM Care Teams Relay Mechanic Relationship Specialty Start Date End Date Aldo Arreaga [address] [address] PCP - General Family Practice 07/28/15
--- OUTSIDE RECORDS SUMMARY | 2024-03-13 09:24 | XMS_ITS | Clinical Summary ---
Author Organization [facility] Address [place], [place] [address] Care Team Providers Care Broom Builder Name Role Phone Aldo Arreaga MD Primary Care Provider [phone] Allergies Active Allergy Reactions Criticality Noted Date Comments Inhalants 03/12/2007 sediation Sulfa (Sulfonamide Antibiotics) *Unknown 02/2006 Tetracycline Rash 09/05/2018 Medications Medication Sig Dispensed Refills Start Date End Date Status MEDICATION ORDER COMPOSERIndication s:Symptomatic states associated with artificial menopause Progesterone 25mg triturate, 1 qHS with additional one 7 days each month 37 prn 05/06/2007 Active MEDICATION ORDER COMPOSERIndication s:Symptomatic states associated with artificial menopause Bi-Est 80:20 (Estriol/Estradio l) 1.25mg, 1 qd with additional one 7 days each month 37 prn 05/06/2007 Active MEDICATION ORDER COMPOSER testosterone 0.75mg triturate SI triturate SL daily 30 thru 10-08 12/22/2008 Active MULTIVITAMIN ORAL Take 1 Tab by mouth. 10/13/2010 Active cholecalciferol (VITAMIN D3) 2,000 unit capsule Take 1,000 mg by mouth. Active Cyanocobalamin (VITAMIN B 12) 50 mcg tablet Take 50 mg by mouth. Active pantoprazole (PROTONIX) 40 mg delayed-release tabletIndications: Epigastric abdominal pain Take 1 tablet by mouth 2 times daily before meals. 90 tablet 5 08/08/2019 Active dicyclomine (BENTYL) 20 mg tabletIndications: Epigastric abdominal pain Take 1 tablet by mouth every 6 hours if needed for Other (Specify). 120 tablet 5 08/08/2019 Active olopatadine (PATANOL) 0.1 % ophthalmic solutionIndication s:Allergic eye reaction Place 1 Drop into both eyes 2 times daily. 5 mL 11 10/10/2019 Active sod. hyaluronate- prednisolone (0.001-0.25%)in BSS(PRED-HEALON)(P EI AMB MIXTURE) Place 1 Drop into both eyes three times daily. Discard bottle 15 days after opening. Refrigerate. Unopened bottle expires: . 15 mL 3 06/16/2022 Active polyethylene glycol-electrolyte (GOLYTELY) 236-22.74-6.74 -5.86 gram suspensionIndicati ons:Encounter for screening colonoscopy Drink 2 liters the day before the procedure and 2 liters 6 hours prior to procedure. 4000 mL 11/13/2023 Active polyethylene glycol-electrolyte (GOLYTELY) 236-22.74-6.74 -5.86 gram suspensionIndicati ons:Encounter for screening colonoscopy Drink 2 liters the day before the procedure and 2 liters 6 hours prior to procedure. 4000 mL 11/22/2023 Active Active Problems Problem Noted Date Diagnosed Date History of colon polyps 11/29/2023 Overview: Colonoscopy 11/2023 long colon, repeat in 7 years, PEG 6-8L Other forms of systemic lupus erythematosus 10/04 Overview: On no medications Pectus excavatum 04/19/2009 ASYMPTOMATIC STATES W ARTIF MENOPAUSE 05/06/2007 CHEST PAIN 05/24/2005 SEASONAL AFFECTIVE DISORDER 04/30/2002 DYSFUNCTIONAL UTERINE BLEEDING 01/22/2002 Resolved Problems Problem Noted Date Diagnosed Date Resolved Date TENNIS ELBOW 11/17/2003 12/01/2003 Immunizations Name Administration Dates Next Due Hepatitis A (Adult) 05/04/2014 Influenza, IIV4 (=>6mos) MDV 06/10/2019 Td (Age >=7 Years) 03/30/2010,01/19/2000 Typhoid (injectable) 05/04/2014 Zoster (Shingrix-RZV, recombinant) 01/27/2019 Family History Medical History Relation Name Comments Cancer Maternal Aunt 1 ovarian Cancer Maternal Aunt 2 breast Diabetes Mother Hyperlipidemia Mother Hypertension Mother Other Mother RA Relation Name Status Comments Father Alive Maternal Aunt 1 Maternal Aunt 2 Mother Alive Social History Tobacco Use Types Packs/Day Years Used Date Smoking Tobacco: Former Cigarettes 0 08/06/1977 - 08/06/1987 Smokeless Tobacco: Never Tobacco Cessation:Counseling Given: Yes Comments:~age 28 Alcohol Use Standard Drinks/Week Comments Yes 0 (1 standard drink = 0.6 oz pur e alcohol) Alcoholic Drinks/day: 2 PHQ-2 Answer Date Recorded PHQ-2 TOTAL SCORE 0 10/10/2019 Social Connections Answer Date Recorded Frequency of Communication with Friends and Fami ly Not on file 11/29/2023 Financial Resource Strain Answer Date R ecorded Difficulty of Paying Living Expenses Not on file 08/06/2021 Difficulty of Paying Living Expenses Not on file 08/06/2021 Sex and Gender Information Value Date Recorded Sex Assigned at Not on file Gender Identity Not on file Sexual Orientation Not on file Obstetrics History Last Filed Vital Signs Vital Sign Reading Time Taken Comments Blood Pressure 140/83 11/29/2023 10:48 AM CDT Pulse 62 11/29/2023 10:48 AM CDT Temperature 36.4 ??C (97.6 ??F) 05/05/2009 9:09 AM CD T Respiratory Rate 14 11/29/2023 10:4 8 AM CDT Oxygen Saturation 95% 11/29/2023 10: 48 AM CDT Inhaled Oxygen Concentration - - Weight 75.3 kg (165 lb 14.4 oz) 020 10:54 AM PUBLISHING AGENT Height 172.7 cm (5' 8) 10/10/2019 10:5 4 AM PUBLISHING AGENT Body Mass Index 25.23 10/10/2019 10:54 AM PUBLISHING AGENT Plan of Treatment Health Maintenance Due Date Last Done Comments Tdap 1971 HIV for age 15-65 1975 Hepatitis C screening for age 18-79 1978 Mammogram for age 45-75 05/06/2008 05/06/20 07, 05/28/2006, 05/16/2005, Additional history exists Lipids for age 45-75 06/26/2011 06/26/2006, 05/30/20 05 Pap test for age 21-65 03/15/2014 1, 03/30/2010, 02/16/2004, Additional history exists Zoster (shingles) series for age 50+ (2 of 2) 03/24/2019 01/27/2019 Tetanus booster 03/30/2020 03/30/2010, 01/19/2000 BMI (ht and wt on same day) for age 18+ 10/09/2020 10/10/2019 Depression screening for age 12+ 10/09/2020 10/10/2019 Influenza for age 50-64 04/06/2024 06/10/2019 Colonoscopy through age 75 11/28/203011/28, 11/29/2023, 10/15/2018, Additional history exists COVID-19 vaccine series Completed 08/13/19, 04/24/2022, 06/02/2021, Additional history exists Pneumococcal series for age 6-64 Aged Out No longer eligible based on patient's age to complete this topic Procedures Procedure Name Priority Date/Time Associated Diagnosis Comments COLONOSCOPY 11/29/2023 9:31 AM CDT GYNECOLOGICAL PANEL Timed 03/15/2011 9 :04 AM CDT XR MAMMO BILAT SCREEN FFDM (IA) Routine 05/06/2007 1:55 PM CDT Screening Mammogram Other LIPID PANEL Add On 06/26/2006 12:50 PM PUBLISHING AGENT Disturbance Of Skin Sensation from Last 3 Months or Most Recently Relevant to Health Maintenance Results * COLONOSCOPY (11/29/2023 9:31 AM CDT) 11/29/2023 9:31 AM CDT Narrative Transcriptions Elder Brian MD - 11/29/2023 10:39 AM CDT Patient Name: Dawna Longoria Procedure Date: 11/29/2023 Gender: Female Date of : 1960 Admit Type: Outpatient Procedure: Colonoscopy Proceduralist: Elder Brian MD , Ayla Browning (Nurse), Argenis Schmitt (Nurse) Indications/Pre-Op Diagnosis: High risk colon cancer surveillance:Personal history of adenoma less than 10 mm in size, Last colonoscopy: October 2018 Medications: Fentanyl 150 micrograms IV, Midazolam 4 mgIV, The level of sedation administered wasmoderate Procedure Description: The patient had risks, benefits and alternatives explained to andgave informed consent. The patient had a stable cardiopulmonary status and judged an adequate candidate for conscious sedation. The PCF-H190L [id number] was passed through the anus and advanced to the cecum, identified by appendiceal orifice and ileocecal valve. The colonoscopy was performed without difficulty. The patient toleratedthe procedure well. The quality of the bowel preparation was good. The ileocecal valve, appendiceal orifice, and rectum were photographed. Complications: No immediate complications. Estimated Blood Loss & Specimen: Estimated blood loss: none. Specimen collected - None Findings: The perianal and digital rectal examinations were normal. The colon (entire examined portion) was moderately redundant. A moderate amount of liquid stool was found in the ascending colon, interfering with visualization. Lavage of the area was performedusing a large amount of sterile water, resulting in clearance with good visualization. The exam was otherwise without abnormality. Impressions/Post-Op Diagnosis: - Redundant colon. - Stool in the ascending colon. - The examination was otherwise normal. - No specimens collected. Recommendation: - Patient has a contact number available for emergencies. The signsand symptoms of potential delayed complications were discussed with the patient. Return to normal activities tomorrow. Written discharge instructions were provided to the patient. - Resume previous diet. - Continue present medications. - Repeat colonoscopy in 7 years for surveillance. - For future colonoscopy the patient will require an extended preparation, Peg 6-8L. If there are any questions, please contact the corporate development officer. Moderate Sedation: A time out was performed before the procedure. Moderate (conscious) sedation was administered by the endoscopy nurse and supervised bythe endoscopist. The following parameters were monitored: oxygensaturation, heart rate, blood pressure, EKG, CO2, respiratory rate, adequacy of pulmonary ventilation and reponse to care. Please refer to the patient's medical record flowsheets and nursing notes for moderate sedation details. Total physician intraservice time was 25 minutes. Elder Brian MD 11/29/2023 10:38:57 AM This report has been signed electronically. Note Initiated On: 11/29/2023 9:31 AM Procedure Code(s): --- Professional --- 04422, Colonoscopy, flexible; diagnostic, including collection of specimen(s) bybrushing or washing, when performed (separateprocedure) Diagnosis Code(s): --- Professional --- Z86.010, Personal history of colonicpolyps Q43.8, Other specified congenitalmalformations of intestine CPT copyright 2022 [employer]. All rights reserved. The codes documented in this report are preliminary and upon gear room keeper reviewmay be revised to meet current compliance requirements. Scope In: 10:07:01 AM Scope Withdrawal Time 0 hours 8 minutes 0 seconds Scope Out: 10:29:56 AM Elder Brian MD PROCEDURE ORD * GYNECOLOGICAL PANEL (03/15/2011 9:04 AM CDT) CYTOLOGY CYTOPATHOLOGY REPORT [facility] Status: Final Status ?[id number] CLINICAL INFORMATION Last Date of LMP ? :Not given Last Pap Date ?:03/15 Last Pap Result ?:WNL Menstrual Status ? :Hyst-cervix present [place]/Bx done today ? :No HPV Request ?:HPV if ASCUS SPECIMEN SOURCE ?:Cervical/vagina l ThinPrep Vial, screening SPECIMEN ADEQUACY ?:Satisfactory for evaluation Endocervical component ? present. INTERPRETATION/RES ULT Negative for intraepithelial lesion or malignancy (NIL) Cytology 1st Screener ??:sag Signed by ?:sag This specimen was screened by the FDA approved ThinPrep Imaging System and manually reviewed. NOTE: ??The Pap test is a screening technique, not a diagnostic procedure. ??It is used ??primarily to screen for squamous cancers and precursor lesions. ??Published studies have shown that it is subject to both false negative and false positive results. ??The pap test should not be used as the sole means to diagnose or exclude pre-malignant and malignant lesions. COLLECTED:03/15/11 ? ACCESSIONED: ??03/16/11 ?? SIGNED: ??03/20/11 [facility] PAP [place] CODE NIL [facility] 03/15/2011 9:04 AM CDT 03/16/2011 9:04 AM CDT Jennifer Stephens PATHOLOGY/CYTOLOGY [facility] INTERNAL ZIP [address] [address] * XR MAMMO BILAT SCREEN FFDM (05/06/2007 1:55 PM CDT) MAMMOGRAM ACR 1 Negative Anatomical Region Laterality Modality BREASTS, Breast Left, Breast Right Bilateral Mammography 05/06/2007 1:55 PM CDT Narrative 05/07/2007 12:38 PM CDT BILATERAL MAMMOGRAM: Negative. ??No evidence for malignancy. ??No interval change when compared to 05/28/06. ACR 1 Negative. Procedure Note Serg Hussein N - 05/07/2007 BILATERAL MAMMOGRAM: Negative. No evidence for malignancy. No interval change when comparedto 05/28/06. ACR 1 Negative. Arlen Patel CN MAMMO * LIPID PANEL (06/26/2006 12:50 PM PUBLISHING AGENT) CHOLESTEROL,TOTAL 170 110 - 199 mg/dL [facility] TRIGLYCERIDES 145 40 - 149 mg/dL [facility] HDL CHOLESTEROL 72 >40 mg/dL [facility] CHOL/HDL RATIO 2.36 <4.51 [facility] LDL CHOLESTEROL 69 <131 mg/dL [facility] PATIENT STATUS Fasting [facility] Blood specimen (specimen) BLOOD SPECIMEN / Unknown 06/26/2006 12:50 PM PUBLISHING AGENT 06/26/2006 12:45 PM PUBLISHING AGENT Yousif Hernandez MD CHEMISTRY [facility] INTERNAL ZIP [address] [place] [id number] from Last 3 Months or Most Recently Relevant to Health Maintenance Care Teams Broom Builder Relationship Specialty Start Date End Date Aldo Arreaga MD [facility] [place] [address] PCP - General Family Practice 09/05/18
--- OUTSIDE RECORDS SUMMARY | 2024-03-13 09:25 | XMS_ITS | Clinical Summary ---
Author Organization [facility] Address [address] [place] [address] Care Team Providers Care Marina Dry Dock Manager Name Role Phone Unavailable Primary Care Provider Unavailabl e Social History Tobacco Use Types Packs/Day Years Used Date Smoking Tobacco: Never Assessed Sex and Gender Information Value Date Recorded Sex Assigned at Not on file Gender Identity Not on file Sexual Orientation Not on file Plan of Treatment Not on file
--- OUTSIDE RECORDS SUMMARY | 2024-03-13 09:25 | XMS_ITS | Referral Summary ---
Author Organization [facility] Address [address] [place] [address] Care Team Providers Care Field Operations Farm Manager Name Role Phone Unavailable Primary Care Provider Unavailabl e Social History Tobacco Use Types Packs/Day Years Used Date Smoking Tobacco: Never Assessed Sex and Gender Information Value Date Recorded Sex Assigned at Not on file Gender Identity Not on file Sexual Orientation Not on file Plan of Treatment Not on file
== END 2024-03-13 09:22 | disposition home or self-care (01) ==
LOC: LKVREF 09:22
PROVIDERS: PCP Emergency Medicine; Visit Provider Emergency Medicine
DX: J35.01 Chronic tonsillitis (principal)
CPT/HCPCS: 86140

== ENCOUNTER 2024-04-30 09:38 | Outpatient (CLI) | payer BC, SELFPAY ==
--- NOTE | 2024-04-30 10:00 | CRLHL7_ITS ---
For Patients: As a result of the Century Cures Act, medical imaging exams and procedure reports are released immediately into your electronic medical record. You may view this report before your referring provider. If you have questions, please contact your health care provider. INDICATION: Trouble breathing. Facial pressure. Chronic sinusitis. TECHNIQUE: High-resolution CT images of the paranasal sinuses were obtained without contrast. Multiplanar reconstructions. FINDINGS: Maxillary: There is mild mucosal thickening at the base left maxillary antrum measuring 3 mm or less. There is 1-2 mm mucosal thickening at the base the right maxillary antrum. The maxillary sinus ostia and infundibulum are patent bilaterally. Nasal fossa: There is prominent jj bullosa of the left middle nasal turbinate with some narrowing of the adjacent middle meatus. There is mild convex right curve of the bony nasal septum. Ethmoid: Minimal mucosal thickening in a few anterior ethmoid air cells. Frontal: The frontal air cells are relatively small but clear and the inferior nasofrontal recesses are patent. Sphenoid: Sphenoid air cells are clear the sphenoid ethmoidal recess is patent. Mastoid air cells are clear bilaterally. IMPRESSION: 1. Mild inflammatory mucosal thickening at the base of the bilateral maxillary sinuses without air-fluid levels. The other paranasal sinuses are clear. 2. Mild convex right nasal septal curve. Prominent left middle turbinate jj bullosa with mild narrowing of the adjacent to the middle meatus. Please note that all CT scans at this facility use dose modulation, iterative reconstruction, and/or weight-based dosing when appropriate to reduce radiation dose to as low as reasonably achievable. Dictated by Brady Lozano MD @ 05/01/2024 8:51:31 AM (Electronically Signed)
== END 2024-04-30 09:39 | disposition home or self-care (01) ==
LOC: CT 09:39
PROVIDERS: PCP Emergency Medicine; Visit Provider Otolaryngology
DX: J32.9 Chronic sinusitis, unspecified (principal); J32.0 Chronic maxillary sinusitis; J34.2 Deviated nasal septum; R06.09 Other forms of dyspnea
CPT/HCPCS: 70486

== ENCOUNTER 2024-06-20 12:26 | Outpatient (CLI) | payer BC, SELFPAY ==
--- OUTSIDE RECORDS SUMMARY | 2024-06-24 23:54 | XMS_ITS | Clinical Summary ---
Author Organization [facility] Address [place], [place] [address] Care Team Providers Care Concrete Mason Name Role Phone Aldo Arreaga MD Primary Care Provider [phone] Allergies Active Allergy Reactions Criticality Noted Date [...] Diagnosed Date History of colon polyps 11/29/2023 Overview (11/29/2023): Colonoscopy 11/2023 long colon, repeat in 7 years, PEG 6-8L Other forms of systemic lupus erythematosus 10/04 Overview (10/15/2019): On no medications Pectus excavatum 04/19/2009 ASYMPTOMATIC [...] 62 11/29/2023 10:48 AM CDT Temperature 36.4 C (97.6 F) 05/05/2009 9:09 AM CDT Respiratory Rate 14 11/29/2023 10:4 8 AM CDT Oxygen Saturation 95% 11/29/2023 10: 48 AM CDT Inhaled Oxygen Concentration - - Weight 75.3 kg (165 lb 14.4 oz) 020 10:54 AM PROPELLER INSPECTOR Height 172.7 cm (5' 8) 10/10/2019 10:5 4 AM PROPELLER INSPECTOR Body Mass Index 25.23 10/10/2019 10:54 AM PROPELLER INSPECTOR Plan of Treatment Health Maintenance Due Date [...] Depression screening for age 12+ 10/09/2020 10/10/2019 COVID-19 vaccine series ( season) 2024 08/13/2023, 04/24/2022, 06/02/2021, Additional history exists Influenza for age 50-64 04/06/2024 06/10/2019 Colonoscopy through age 75 11/28/203011/28, 11/29/2023, 10/15/2018, Additional history exists Pneumococcal series for age 6-64 Aged Out No longer eligible based on patient's age to complete this topic Procedures Procedure Name Priority Date/Time Associated Diagnosis Comments COLONOSCOPY 11/29/2023 9:31 AM CDT GYNECOLOGICAL PANEL Timed 03/15/2011 9 :04 AM CDT XR MAMMO BILAT SCREEN FFDM (IA) Routine 05/06/2007 1:55 PM CDT Screening Mammogram Other LIPID PANEL Add On 06/26/2006 12:50 PM PROPELLER INSPECTOR Disturbance Of Skin Sensation from Last 3 [...] adequate candidate for conscious sedation. The PCF-H190L [id number] was passed through the anus and advanced [...] there are any questions, please contact the blind teacher. Moderate Sedation: A time out was performed [...] 9:31 AM Procedure Code(s): --- Professional --- 23985, Colonoscopy, flexible; diagnostic, including collection of specimen(s) bybrushing or washing, when performed (separateprocedure) Diagnosis Code(s): --- Professional --- Z86.010, Personal history of colonicpolyps Q43.8, Other specified congenitalmalformations of intestine CPT copyright 2022 [employer]. All rights reserved. The codes documented in this report are preliminary and upon inpatient coder reviewmay be revised to meet current compliance requirements. Scope In: 10:07:01 AM Scope Withdrawal Time 0 hours 8 minutes 0 seconds Scope Out: 10:29:56 AM Elder Brian MD PROCEDURE ORD * GYNECOLOGICAL PANEL (03/15/2011 9:04 AM CDT) CYTOLOGY CYTOPATHOLOGY REPORT [facility] Status: Final Status [id number] CLINICAL INFORMATION Last Date of LMP :Not given Last Pap Date :03/15 Last Pap Result :WNL Menstrual Status :Hyst-cervix present [place]/Bx done today :No HPV Request :HPV if ASCUS SPECIMEN SOURCE :Cervical/vaginal ThinPrep Vial, screening SPECIMEN ADEQUACY :Satisfactory for evaluation Endocervical component present. INTERPRETATION/RES ULT Negative for intraepithelial lesion or malignancy (NIL) Cytology 1st Screener :yanci Signed by :yanci This specimen was screened by the FDA approved ThinPrep Imaging System and manually reviewed. NOTE: The Pap test is a screening technique, not a diagnostic procedure. It is used primarily to screen for squamous cancers and precursor lesions. Published studies have shown that it is subject to both false negative and false positive results. The pap test should not be used as the sole means to diagnose or exclude pre-malignant and malignant lesions. COLLECTED:03/15/11 ACCESSIONED: 03/16/11 SIGNED: 03/20/11 [facility] PAP [place] CODE NIL [facility] 03/15/2011 9:04 AM CDT 03/16/2011 9:04 AM CDT Jennifer Stephens PATHOLOGY/CYTOLOGY [facility] INTERNAL ZIP [address] [address] * XR MAMMO BILAT SCREEN FFDM (05/06/2007 1:55 PM CDT) MAMMOGRAM ACR 1 Negative Anatomical Region Laterality Modality BREASTS, Breast Left, Breast Right Bilateral Mammography 05/06/2007 1:55 PM CDT Narrative 05/07/2007 12:38 PM CDT BILATERAL MAMMOGRAM: Negative. No evidence for malignancy. No interval change when compared to 05/28/06. ACR 1 Negative. Procedure Note Serg Hussein - 05/07/2007 BILATERAL MAMMOGRAM: Negative. No evidence for malignancy. No interval change when comparedto 05/28/06. ACR 1 Negative. Arlen Patel CNM MAMMO * LIPID PANEL (06/26/2006 12:50 PM PROPELLER INSPECTOR) CHOLESTEROL,TOTAL 170 110 - 199 mg/dL [facility] TRIGLYCERIDES 145 40 - 149 mg/dL [facility] HDL CHOLESTEROL 72 >40 mg/dL [facility] CHOL/HDL RATIO 2.36 <4.51 [facility] LDL CHOLESTEROL 69 <131 mg/dL [facility] PATIENT STATUS Fasting [facility] Blood specimen (specimen) BLOOD SPECIMEN / Unknown 06/26/2006 12:50 PM PROPELLER INSPECTOR 06/26/2006 12:45 PM PROPELLER INSPECTOR Yousif Hernandez MD CHEMISTRY [facility] INTERNAL ZIP [id number] [place] [address] from Last 3 Months or Most Recently Relevant to Health Maintenance Care Teams Concrete Mason Relationship Specialty Start Date End Date Aldo Arreaga MD [address] [place] [address] [phone] PCP - General Family Practice 09/05/18
--- OUTSIDE RECORDS SUMMARY | 2024-06-24 23:54 | XMS_ITS | Referral Summary ---
Author Organization [facility] Address [address] [place] [address] Care Team Providers Care Receiving Room Clerk Name Role Phone Aldo Arreaga Primary Care Provider [phone] Allergies Active Allergy Reactions Criticality Noted Date Comments Doxycycline 08/30/2016 PN: LW Reaction: Rash, Generalized Seasonal Allergies 08/30/2016 sediation Sulfa Antibiotics Unknown 08/30/2016 PN: LW Reaction: ANAPHYLAXIS Tetracycline Rash Low 08/31/2016 Tetracyclines & Related Rash High 08/30/2016 Medications Pediatric Multiple Vit-C-FA (MULTIVITAMIN CHILDRENS) CHEW Take [...] School Help Needed Not on file 01/13 Comments No Sex and Gender Information Value Date Recorded Sex Assigned at Not on file Legal Sex Female 3:12 AM BENCH WORKER HELPER Gender Identity Not on file Sexual Orientation Not on file Last Filed Vital Signs Vital Sign Reading Time Taken Comments Blood Pressure 124/76 12/09/2018 11:06 AM CDT Pulse 83 11/19/2018 12:38 AM CDT Temperature 36.4 C (97.5 F) 11/19/2018 12:38 AM CDT Respiratory Rate 16 11/19/2018 12:38 AM CDT Oxygen Saturation 96% 11/19/2018 12:38 AM CDT Inhaled Oxygen Concentration - - Weight 71.7 kg (158 lb) 12/09/2018 11:06 AM CDT Height 172.7 cm (5' 8) 12/09/2018 11:06 AM CDT Body Mass Index 24.02 12/09/2018 11:06 AM CDT Plan of Treatment Not on file Insurance [facility] [employer] Advance Directives For more information, please contact: [phone] * Full Code (Latest Code Status on File) Date Activated Date Inactivated Comments 01/08/2017 8:19 AM 11/19/2018 12:27 AM * Full Code Date Activated Date Inactivated Comments 01/07/2017 10:38 PM 01/08/2017 8:19 AM Care Teams Receiving Room Clerk Relationship Specialty Start Date End Date Aldo Arreaga: [phone] [address] [address] PCP - General Family Practice 07/28/15
--- OUTSIDE RECORDS SUMMARY | 2024-06-24 23:54 | XMS_ITS | Clinical Summary ---
Author Organization [facility] Address [address] [place] [address] Care Team Providers Care Atm Servicer Name Role Phone Aldo Arreaga Primary Care [...] on file Legal Sex Female 3:12 AM J2EE SOFTWARE ENGINEER Gender Identity Not on file Sexual Orientation [...] Plan of Treatment Not on file Insurance [facility] [place] [place] [address] Advance Directives For more information, please contact: [phone] * Full Code (Latest Code Status on File) Date Activated Date Inactivated Comments 01/08/2017 8:19 AM 11/19/2018 12:27 AM * Full Code Date Activated Date Inactivated Comments 01/07/2017 10:38 PM 01/08/2017 8:19 AM Care Teams Atm Servicer Relationship Specialty Start Date End Date Aldo Arreaga: [phone] [address] [address] PCP - General Family Practice 07/28/15
--- OUTSIDE RECORDS SUMMARY | 2024-06-24 23:54 | XMS_ITS | Clinical Summary ---
Author Organization [facility] Address [address], [place] [address] Care Team Providers Care Cancer Genetics Assistant Name Role Phone Pcp, Pt Romero VALDEZ Primary Care Provider Source Comments You are receiving this document as you are listed as the primary care provider,follow-up provider, or the patient has been referred to you for consultation.This is in compliance with the Medicare and[facility] EHR Incentive Program,which states Providers who transition their patient to another setting of careor provider of care or refers their patient to another provider of care shouldprovide summary care record for each transition of care or referral. [employer] Allergies Active Allergy Reactions Criticality Noted Date [...] joint pain). 100 g 3 12/01/2020 Active Bgjxsrryte-KWEB-Jbpka ine 50-300-40 MG CAPS TAKE 1-2 capsules [...] Comments Blood Pressure 152/85 09/12/2023 11:11 AM COSTUME SEAMSTRESS Pulse 86 09/12/2023 11:11 AM COSTUME SEAMSTRESS Temperature 35.6 C (96 F) 12/05/2021 9:35 AM CDT Respiratory Rate - - Oxygen Saturation - - Inhaled Oxygen Concentration - - Weight 73.9 kg (162 lb 14.4 oz) 024 11:11 AM COSTUME SEAMSTRESS Height 170.2 cm (5' 7) 11/22/2015 11:0 [...] 01/26/2023 01/26/2022, 01/05, 09/09/2019, Additional history exists COVID-19 Vaccine (6 season) 2024 08/13/2023, 04/24/2022, 06/02/2021, Additional history exists Influenza (#1) 2024 07/11/2023, 06/07, 08/02/2021, Additional history exists RSV (1 - 1-dose 75+ series) 2035 HepA Aged Out 06/18/2018, 05/04/2014 No lo nger eligible based on patient's age to complete this topic Zoster/Shingles Completed 01/27/2019, 06/18/2018 HepB Aged Out No longer eligi ble based on patient's age to complete this topic Hib Aged Out No longer eligi ble based on patient's age to complete this topic IPV (Polio) Aged Out No longer eligi ble based on patient's age to complete this topic RSV Aged Out No longer eligi ble based on patient's age to complete this topic MCV4 Aged Out No longer eligi ble based on patient's age to complete this topic Pneumococcal Aged Out No longer eligi ble based on patient's age to complete this topic Procedures Procedure Name Priority Date/Time Associated Diagnosis Comments MM MAMMOGRAM SCREENING BILAT W CAD Routine 04/27/2010 1:44 PM CDT from Last 3 Months or Most Recently Relevant to Health Maintenance Results * MM Mammogram Screening Bilat W CAD (04/27/2010 1:44 PM CDT) Anatomical Region Laterality Modality Breast Bilateral Mammography Narrative 04/28/2010 10:23 AM CDT Comparison is made to films from 04/08/2008 (bilateral) and films from 04/13/2009 (bilateral). There is no significant interval change. Bilateral Breast Findings: The breasts are heterogeneously dense (51% - 75% fibroglandular). This may lower the sensitivity of mammography. No significant masses, calcifications or other abnormalities are seen. IMPRESSION: BILATERAL BREASTS Negative, no evidence of malignancy. Normal interval follow-up is recommended in 12 months. OVERALL ASSESSMENT - CATEGORY 1 - NEGATIVE END OF IMPRESSION BJ Dictating RAULITO ALEXANDER RADIOLOGIST Procedure Note Raulito Kwok - 03/29/2016 Comparison is made to films from 04/08/2008 (bilateral) and films from 04/13/2009 (bilateral). There is no significant interval change. Bilateral Breast Findings: The breasts are heterogeneously dense (51% - 75% fibroglandular). This may lower the sensitivity of mammography. No significant masses, calcifications or other abnormalities are seen. IMPRESSION: BILATERAL BREASTS Negative, no evidence of malignancy. Normal interval follow-up is recommended in 12 months. OVERALL ASSESSMENT - CATEGORY 1 - NEGATIVE END OF IMPRESSION BJ Dictating RAULITO ALEXANDER RADIOLOGIST Mynor Moeller MD RAD LUPE from Last 3 Months or Most Recently Relevant to Health Maintenance Care Teams Cancer Genetics Assistant Relationship Specialty Start Date End Date Pcp, [place] [address] PCP - General 12/24/13
--- OUTSIDE RECORDS SUMMARY | 2024-06-24 23:54 | XMS_ITS | Clinical Summary ---
Author Organization [facility] Address [address] [place] [id number] Care Team Providers Care Diesel Engine Mechanic Apprentice Name Role Phone Unavailable Primary Care Provider Unavailabl e Social History Tobacco Use Types Packs/Day Years Used Date Smoking Tobacco: Never Assessed Sex and Gender Information Value Date Recorded Sex Assigned at Not on file Gender Identity Not on file Sexual Orientation Not on file Plan of Treatment Not on file
--- OUTSIDE RECORDS SUMMARY | 2024-06-24 23:54 | XMS_ITS | Patient Health Record ---
Author Organization [facility] Address [address] [place] [address] Care Team Providers Care Outside Salesperson Name Role Phone [place] Primary Care Provider Allergies Allergen (clinical drug ingredient) Drug/Non Drug Allergy documented on EMR Reaction Allergy Type Onset Date Status sulfamethoxazole / trimethoprim Sulfamethoxazole-T rimethoprim Anaphylaxis-Ba kers Yeast Drug Allergy Active tetracycline Tetracycline HCl Rash Drug Allergy Active Reason For Referral No Information Medications Medication SIG (Take, Route, Frequency, Duration) Notes [...] Estradiol 2.75mg Trit, dissolve once daily Active Social History Tobacco Use: Social History Observation Description Date Details (start date - stop date) Never Smoker NA - NA Tobacco Use/Smoking Question Answer Notes Are you a nonsmoker Problems Problem Type SNOMED Code ICD Code Onset Dates Problem Status W/U Status Risk Notes Problem [id number] Menopausal and female climacteric states (N95.1) Active confirmed Plan Of Treatment No Information Insurance Providers Payer Name Payer Address Payer Phone Subscriber Number Group Number Insured Name Patient Relationship to Insured Coverage Start Date Coverage End Date [employer]BS - (Client Bill) [address] [place] [phone] [id number] Dawna Longoria Self - patient is the insured Medical (General) History Medical History History ICD Code Cutaneous Lupus Borderline Diabetic Surgical History Surgery Date(Month/Year) Gall bladder removal 2017 Umbilical Hernia Repair with mesh Supra cervical Hysterectomy w/left oopha rectomy 2003
--- OUTSIDE RECORDS SUMMARY | 2024-06-24 23:54 | XMS_ITS | Referral Summary ---
Author Organization [facility] Address [address] [place] [id number] Care Team Providers Care Materials Intern Name Role Phone Unavailable Primary Care Provider Unavailabl e Social History Tobacco Use Types Packs/Day Years Used Date Smoking Tobacco: Never Assessed Sex and Gender Information Value Date Recorded Sex Assigned at Not on file Gender Identity Not on file Sexual Orientation Not on file Plan of Treatment Not on file
--- OUTSIDE RECORDS SUMMARY | 2024-06-24 23:54 | XMS_ITS | Data Portability ---
Author Organization [facility], [id number] Address [address] [place] [id number] Assessment Encounter Date Assessment Date Assessment LastModified by Organization Details LastModified Time 12/28/2022 12/28/2022 I spent a total of 20 minutes providing care for this patient including: preparing to see the patient, obtaining a medical history, completing a medically appropriate physical exam, completing documentation of visit information and plans in the EMR, counseling the patient and/or caregiver regarding her diagnosis, treatment options and follow up plans, as well as any necessary communication of subsequent test results to the patient, reviewing medical records, , [email or web address] Not available 12/28/2022 11:56:40 07/13/2023 07/13/2023 62yo s/p [place], well woman exam. -RHM: Pap smear up to date. Calcium and vitamin D recommendations reviewed. Regular cardiovascular exercise recommendations reviewed. Continue breast cancer screening per [facility]'s recommendations, alternating MRI and mammograms q6 months. Colon cancer screening up to date, due in 2023. Bone density screening in 2021, next in 10-15 years. Fasting labs with PCP. Vaccine recommendations reviewed. [email or web address] Not available 07/13/2023 12:05:56 Plan of Treatment Reminders Order Date Submit Date Provider Last Modified By Organization Details Last Modified Time Details Appointments None record ed. Lab None record ed. Referral None record ed. Procedures None record ed. Surgeries None record ed. Imaging None record ed. Medication Orders None record ed. Patient TargetsNo targets recorded. Patient Instructions Encounter Date Encounter Id Patient Instructions Last Modified By Organization Details Last Modified Time 05/30/2021 [id number] - Encouraged breast self-awareness and monthly breast exams. - Recommend mammogram annually - Encouraged regular exercise. - Calcium, vitamin D, and weight bearing exercise for bone health. - Osteoporosis screening based on age and risk factors - Non gynecologic health concerns managed by primary care physician - Reviewed current cervical cancer screening guidelines. - Recommend colon cancer screening at appropriate intervals based on risk factors - Return to clinic in 1 year [email or web address] Not available 05/30/2021 15:24:23 06/26/2022 [id number] - Encouraged breast self-awareness and monthly breast exams. - Recommend mammogram and MRI annually - Encouraged regular exercise. - Calcium, vitamin D, and weight bearing exercise for bone health. - Osteoporosis screening based on age and risk factors - Non gynecologic health concerns managed by primary care physician . - Reviewed current cervical cancer screening guidelines. - Recommend colon cancer screening at appropriate intervals based on risk factors - Menopausal symptoms discussed - Counseled patient on use of HRT. Pt to discuss with [facility] next month - Return to clinic in 1 year [email or web address] Not available 06/26/2022 13:13:58 Reason for Referral None Reported. Results Created Date Observation Date Name Description Value Unit Range Abnormal Flag Note LastModifiedBy Organization Detail LastModifiedTime 02/03/2001/25/2021 MAMMO , scree bessy, tomos ynthe sis, bilat eral, w/ CAD No observ ation record ed. [email or web address] [facility] [address] [place] [address], [address], 02/07/2023 15:32:04 02/08/2002/07/2023 MAMMO , scree bessy, tomos ynthe sis, bilat eral No observ ation record ed. [email or web address] [id number], [address], 02/08/2023 08:53:29 02/08/2002/07/2023 lay lette r No observ ation record ed. STEVEN [id number] [address], [place], [address], 02/08/2023 16:42:21 Result Notes None recorded. Problems Name Problem SNOMED Code Status Onset Date Resolution Date Notes Provider Name and Address Organization Details Recorded Time Family history of breast cancer 782102165 Active 2020 mother 72. also several maternal aunts, all over 50, 4 cousin at 45. Genetic counseling was suggested to pt per records in 2008. 2017 per pt mother BRCA neg years ago. Now m cousins with breast ca. They plan genetic testing. Rec that pt see high risk breast ca clinic/cou nselor and do MRI/mammo q yr. 2018: pt saw [facility]. Getting MRI/mammo q yr. Considerin [place] [address] [address], [place], [address], [place] [facility] 15:20:52 Lupus erythemato aime 262585024 Active 2020 2017 [facility] of skin. Lupus erythemato sis. Rash, bx. flare off [place]RT [place] [address] [address], [place], [address], [place] [facility] 1 15:21:39 Past history of gestationa l diabetes mellitus 910549655 Active 2020 x 2 [place] [address] [address], [place], [address], [place] [facility] 1 15:21:56 Problem Notes None recorded. Procedures Surgical History Date Name Laterality Status Provider Name and Address Organization Details Recorded Time 02/01/20 23 Date of Last Mammogram completed Luciano Stern [facility] 02/08/2023 08:53:49 03/22/20 20 Date of Last Pap Smear completed Libertad Rice (TERMED) [facility] 03/25/2020 19:14:56 11/05/19 19 Date of Last Colonoscopy completed Rowena Stoddard [facility] 05/27/2021 17:21:14 non-surgical breast biopsy completed Bailey Iglesias(TERM ) [place] [facility] 06/26/2022 10:49:39 Removal of gallbladder completed Bailey Iglesias(TERM ) [place] [facility] 06/26/2022 10:49:39 salpingo-oophorec keron completed Bailey Iglesias(TERM ) [place] [facility] [facility] 06/26/2022 10:49:39 tooth extraction completed Bailey Iglesias(TERM ) [place] [facility] 06/26/2022 10:49:39 hernia repair completed Bailey Iglesias(TERM ) [place] [facility] 06/26/2022 10:49:39 laparoscopic supracervical hysterectomy completed Bailey Iglesias(TERM ) [place] [facility] 06/26/2022 10:49:39 Colonoscopy completed Bailey Iglesias(TERM ) [place] [facility] 06/26/2022 10:49:39 Imaging Results Imaging Date Name Status LastModified by Organiz ation Details LastModified Time 01/25/2021 MAMMO, screening, tomosynthesis, bilateral, w/ CAD completed [email or web address] [facility] [address] [place] [address], [address], 02/07/2023 15:32:04 02/07/2023 MAMMO, screening, tomosynthesis, bilateral completed [email or web address] [id number], [address], 02/08/2023 08:53:29 02/07/2023 lay letter completed STEVEN [id number] [address], [address], 02/08/2023 16:42:21 Procedure Notes None recorded. Medical Equipment None Reported. Allergies Allergen ID Allergen Name Allergen Category Reaction Reaction Severity Criticality Documentation Date Start Date Code Code System Note Provider Name and Address Organization Details Recorded Time 786025 Medicinal product containin g tetracycl ine structure and acting as antibacte rial agent (product) medicatio n Not available Not available Not available 03/12/2020 88123 1004 SNOMED *Note : 12/09 - Not Available [facility] 0 16:56:52 955428 fluconazo le medicatio n Not available Not available Not available 03/12/2020 4450 RxNorm *Note : 12/09 - Not Available [facility] 0 16:56:52 389620 bee pollen environme nt,medica tion Not available Not available Not available 03/12/2020 82051 7 RxNorm Not Available [facility] 0 16:56:52 107627 Substance with sulfonami de structure and antibacte rial mechanism of action (substanc e) medicatio n Not available Not available Not available 03/12/2020 94384 8003 SNOMED *Note : 12/09 - Not Available [facility] 0 16:56:53 865685 pertussis vaccine medicatio n Not available Not available Not available 03/12/2020 8080 RxNorm *Note : 12/09 - son is don jimenez honey gic Not Available [facility] 0 16:56:53 Medications Name Sig Start Date Stop Date Status Note LastModified by Organization Details LastModified Time amoxicillin 500 mg capsule 05/30 completed Not Available Not Available Not Available butalbital- acetaminoph en-caffeine 50 mg-325 mg-40 mg capsule 01/26 completed Not Available Not Available Not Available hydrocodone 5 mg-acetamin ophen 325 mg tablet 06/26 completed Not Available Not Available Not Available triamcinolo ne acetonide 0.1 % topical cream APPLY TO AFFECTED AREA(S) topically twice a day active Not Available Not Available No t Available oxycodone-a cetaminophe n 5 mg-325 mg tablet take 1-2 tablets by mouth every 4 hours as needed 06/26 completed Not Available Not Available Not Available alprazolam 0.5 mg tablet 06/26 completed Not Available Not Available Not Available amoxicillin 875 mg tablet TAKE 1 TABLET BY MOUTH TWICE DAILY FOR 10 DAYS 12/28 completed Not Available Not Available Not Available flaxseed oil 1000 mg capsule 1 mg every day by oral route. active Not Available Not Available No t Available dicyclomine 20 mg tablet 05/30 completed Not Available Not Available Not Available cephalexin 500 mg capsule TAKE ONE CAPSULE BY MOUTH THREE TIMES DAILY 05/30 completed Not Available Not Available Not Available pantoprazol e 40 mg tablet,ayesha yed release 05/30 completed Not Available Not Available Not Available olopatadine 0.1 % eye drops 05/30 completed Not Available Not Available Not Available fluorometho lone 0.1 % eye drops,suspe nsion INSTILL ONE DROP INTO EACH EYE TWICE DAILY 05/30 completed Not Available Not Available Not Available progesteron e micronized 200 mg capsule TAKE TWO CAPSULES BY MOUTH DAILY AT BEDTIME 05/30 completed Not Available Not Available Not Available hydroxychlo roquine 200 mg tablet Take 1 Tablet by mouth daily 05/30 completed Not Available Not Available Not Available albuterol sulfate HFA 90 mcg/actuati on aerosol inhaler 05/30 completed Not Available Not Available Not Available cefdinir 300 mg capsule TAKE 1 CAPSULE BY MOUTH TWICE DAILY FOR 7 DAYS for sinus infection * active Not Available Not Available No t Available progesteron e micronized 100 mg capsule Take 1 capsule by mouth at bedtime* 07/12 completed Not Available Not Available Not Available amoxicillin 875 mg-potassiu m clavulanate 125 mg tablet 05/30 completed Not Available Not Available Not Available tobramycin 0.3 %-dexametha sone 0.1 % eye drops,suspe nsion 12/27 completed Not Available Not Available Not Available Miconazole- 3 200 mg-2 % (9 gram) vaginal kit place 1 supposito ry in vagina at bedtime for 3 nights. use cream on area outside of vagina 2 times daily for up to 7 days 01/26 completed Not Available Not Available Not Available cyclosporin e 0.05 % eye drops in a dropperette INSTILL ONE DROP INTO EACH EYE TWICE DAILY 12/27 completed Not Available Not Available Not Available metoprolol tartrate 25 mg tablet 05/30 completed Not Available Not Available Not Available olopatadine 0.2 % eye drops place 1 drop into both eyes daily. 05/30 completed Not Available Not Available Not Available Refresh Dry Eye Therapy 1 %-1 % drops 1 drop 4 times a day by ophthalmi c route. active Not Available Not Available No t Available butalbital- acetaminoph en-caffeine 50 mg-300 mg-40 mg capsule TAKE 1-2 capsules BY MOUTH EVERY 4-6 HOURS NEEDED FOR PAIN. max 6 per day. active Not Available Not Available No t Available Vitamin D3 50 mcg (2,000 unit) capsule 1 microgram every day by oral route. active Not Available Not Available No t Available Vitamin B12 2,500 mcg tablet active Not Available Not Available Not Available Fluzone Quad 60 mcg (15 mcg x 4)/0.5 mL intramuscul ar susp. 05/30 completed Not Available Not Available Not Available Pataday Once Daily Relief 0.7 % eye drops active Not Available Not Available Not Available collagen-bi otin-ascorb ic acid active Not Available Not Available Not Available Paxlovid 300 mg (150 mg x 2)-100 mg tablets in a dose pack 3 TABS TWICE DAILY FOR 5 DAYS ORALLY active Not Available Not Available No t Available Vitals Date Recorded Body height Body mass index (BMI) Body weight Systolic blood pressure Diastolic blood pressure Provider Name and Address Organization Details Last Updated DateTime 05/30/2021 172.72 cm 25.1 kg/m2 69893.74 g 134 mm[Hg] 82 mm[Hg] Jeff Miner (TERMED) [facility] 1 14:57:18 Date Recorded Body height Body mass index (BMI) Body weight Systolic blood pressure Diastolic blood pressure Provider Name and Address Organization Details Last Updated DateTime 06/26/2022 172.72 cm 24.9 kg/m2 35666.15 g 138 mm[Hg] 82 mm[Hg] Bailey Iglesias( TERM) [facility] 2 10:55:57 Date Recorded Body height Body mass index (BMI) Body weight Systolic blood pressure Diastolic blood pressure Provider Name and Address Organization Details Last Updated DateTime 12/28/2022 172.72 cm 24.4 kg/m2 18133.65 g 132 mm[Hg] 86 mm[Hg] Rowena Stoddard [facility] 3 11:34:45 Date Recorded Body height Body mass index (BMI) Body weight Systolic blood pressure Diastolic blood pressure Provider Name and Address Organization Details Last Updated DateTime 07/13/2023 172.72 cm 24.8 kg/m2 83139.99 g 126 mm[Hg] 84 mm[Hg] Rowena Stoddard [facility] 11:29:20 Social History Question Answer Notes LastModified by [employer] Details LastModified Time Tobacco Smoking Status Former Smoker Rowena Stoddard [place] 05/27/2021 17:19:31 What Is Your Level Of Alcohol Consumption? Occasional Information not available 12/28/2022 What Is Your Level Of Caffeine Consumption? Moderate 1c/day [email or web address] Information not available 07/13/2023 Which Illicit Or Recreational Drugs Have You Used? 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 Information not available 05/27/2021 Are You Sexually Active? Yes Information not available 12/28/2022 Do You Use Any Illicit Or Recreational Drugs? No Information not available 05/27/2021 Sex: Unknown Functional Status Question Answer Note LastModified by [employer] Details LastModified Time What is your exercise level? Moderate Moderate Amount of Exercise (1-3 times weekly) Information not available 03/15/2020 Mental Status None recorded. Family History Relationship Description Onset Age of this Age Resolved Age Notes LastModified by Organization Details LastModified Time Mother Benign essential hypertension Hypert ension Not available 07/13/2023 11:26:29 Mother Family history of breast cancer 72 Cancer Breast : mother BRCA neg per pt. 2017- teo gonsales l cousin s now with breast ca Not available 07/13/2023 11:26:29 Mother Family history of stroke Stroke Not available 2022 11:26:29 Mother Family history of Cardiovascul ar disease Heart diseas e Not available 07/13/2023 11:26:29 Mother Benign neoplasm of colon Colon Polyp, Benign Not available 07/13/2023 11:26:29 Mother Family history of diabetes mellitus Diabet es Not available 07/13/2023 11:26:29 Mother Hypercholest erolemia 70 Not available 2022 11:26:29 Mother Malignant tumor of breast 70 Not available 2022 11:26:29 Mother Hypertensive disorder 70 Not available 2022 11:26:29 Mother Diabetes mellitus 70 Not available 2022 11:26:29 Maternal Grandmother Family history of diabetes mellitus Diabet es Not available 07/13/2023 11:26:29 Maternal Grandmother Malignant tumor of breast 70 93 Not available 2022 11:26:29 Maternal Aunt Malignant tumor of breast 67 85 Not available 2022 11:26:29 Maternal Aunt Malignant tumor of breast 64 75 Not available 2022 11:26:29 Maternal Aunt Malignant tumor of breast 69 Not available 2022 11:26:29 Maternal Aunt Malignant tumor of ovary 60 Not available 2022 11:26:29 Maternal Grandfather Malignant tumor of prostate 69 73 Not available 2022 11:26:29 Notes:03/15/2020: *Relative: Aunt *Problem: Cancer Breast: mother BRCA neg per pt. 2017- several materal cousins now with breast ca Medical History Condition Response Dermatology-Other Y Rheumatology- Autoimmune Disease Y GI- Colon Polyps Y Endocrinology- History of Gestational Di abetes Y Psych- Anxiety Disorder Y ID-Other N GI- Reflux/Ulcers Y Neurology- Headaches/Migraines Y Pulmonary- Asthma N Gynecological History Statement/Question Response Sexually Active Y History of Abnormal PAP N History of Recurrent Ovarian Cysts N 42 Date of Last Colonoscopy 11/04/2018 Date of Last Mammogram 01/31/2023 History of Sexually Transmitted Infectio n N Y History of Cervical Dysplasia N Current Control Method Hysterectom y Urinary Incontinence Symptoms N Date of Last Pap Smear 03/22/2020 Date of Last Cholesterol Screening Date of last bone density 08/10/2021 Obstetrics History GPAL:G 3 P 2 0 1 2 Type Value Multiple Births 0 Full Term 2 Induced 0 Spontaneous 1 Premature 0 Living 2 Ectopics 0 Total 3 Immunizations Vaccine Type Date Status Provider Name and Address Organization Details Recorded Time Influenza, split virus, quadrivalent, preservative 05/14/2014 completed Rowena Will null, [facility] 12/28/2022 08:18:29 Influenza, split virus, quadrivalent, preservative 05/28/2018 completed Rowena Will null, [facility] 12/28/2022 08:18:29 Influenza, split virus, quadrivalent, preservative 06/05/2017 completed Rowena Will null, [facility] 12/28/2022 08:18:29 Influenza, split virus, quadrivalent, preservative 06/10/2019 completed Rowena Will null, [facility] 12/28/2022 08:18:29 Influenza, split virus, quadrivalent, preservative 07/05/2016 completed Rowena Will null, [facility] 12/28/2022 08:18:29 zoster recombinant 01/27/2019 completed Rowena Will null, [facility] 12/28/2022 08:18:29 zoster recombinant 06/18/2018 completed Rowena Will null, [facility] 12/28/2022 08:18:29 COVID-19, mRNA, LNP-S, PF, 30 mcg/0.3 mL dose 10/30/2020 completed Rowena Will null, [facility] 12/28/2022 08:18:29 COVID-19, mRNA, LNP-S, PF, 30 mcg/0.3 mL dose 11/20/2020 completed Rownea Will null, [facility] 12/28/2022 08:18:29 COVID-19, mRNA, LNP-S, PF, 30 mcg/0.3 mL dose 06/02/2021 completed Rowena Will null, [facility] 12/28/2022 08:18:29 COVID-19, mRNA, LNP-S, bivalent, PF, 30 mcg/0.3 mL dose 04/24/2022 [facility] [place] [facility] 12/28/2022 08:18:29 influenza, unspecified formulation 05/06/2011 completed Rowena Will null, [facility] 12/28/2022 08:18:29 influenza, unspecified formulation 06/06/2010 completed Rowena Will null, [facility] 12/28/2022 08:18:29 Td(adult) unspecified formulation 08/06/2009 completed Rowena Will null, [facility] 12/28/2022 08:18:29 Influenza, split virus, trivalent, preservative 06/23/2008 completed Rowena Will null, [facility] 12/28/2022 08:18:29 Influenza, split virus, trivalent, PF 06/02/2010 completed Rowena Will null, [facility] 12/28/2022 08:18:29 Novel [id number] 06/17/2009 completed Rowena Will null, [facility] 12/28/2022 08:18:29 Td (adult), 5 Lf tetanus toxoid, preservative free, adsorbed 03/30/2010 completed Rowena Will null, [facility] 12/28/2022 08:18:29 Td (adult), 5 Lf tetanus toxoid, preservative free, adsorbed 06/18/2018 completed Rowena Will null, [facility] 12/28/2022 08:18:29 Hep B, adult 06/18/2018 completed Rowena Will null, [facility] 12/28/2022 08:18:29 Hep A, adult 05/04/2014 completed Rowena Will null, [facility] 12/28/2022 08:18:29 Hep A, ped/adol, 2 dose 06/18/2018 completed Rowena Will null, [facility] 12/28/2022 08:18:30 typhoid, ViCPs 05/04/2014 completed Rowena Will null, [facility] 12/28/2022 08:18:30 Influenza, split virus, quadrivalent, PF 05/26/2020 completed Rowena Will null, [facility] [facility] 12/28/2022 08:18:30 Influenza, split virus, quadrivalent, PF 06/17/2009 completed Rowena Will null, [place] [facility] 12/28/2022 08:18:30 Influenza, split virus, quadrivalent, PF 08/02/2021 completed Rowena Will null, [facility] 12/28/2022 08:18:30 Influenza, MDCK, quadrivalent, PF 06/26/2022 completed Rowena Will null, [facility] 12/28/2022 11:32:55 Past Encounters Encounter ID Performer Location Encounter Start Date Encounter Closed Date Diagnosis/Indication Diagnosis SNOMED-CT Code Diagnosis ICD10 Code [id number] DAWNA CARRINGTON MD [address] ,[facility] [address] [place] [address] 05/30/2021 14:39:14 05/30/2021 15:26:14 Family history of breast cancer 753049836 Z80.3 Gynecologi c examination 27105617 Z01.299 [id number] DAWNA CARRINGTON MD [address] ,[address] [place] [address] 06/26/2022 10:39:00 06/26/2022 11:38:05 Family history of breast cancer 253574623 Z80.3 Past pregn fozia history of gestational diabetes mellitus 097054314 Z86.32 Gynecologi c examination 69135999 Z01.419 Menopausal symptom 09827 002 N95.1 [id number] JIMMY MACIAS MD [address] ,[address] [facility] [place] [address] 12/28/2022 11:25:07 12/28/2022 11:59:21 Vaginal lesion 198004107 N94.89 Screening for malignant neoplasm of breast 867624028 Z12.39 [id number] LATONIA NGUYEN MD [id number]_[address] [place] ,[address] [place] [address] 07/13/2023 11:15:29 07/13/2023 12:10:52 Gynecologic examination 46792103 Z01.419 Health Concerns Section Related Observation LastModified by Organization Detai ls LastModified Time None Recorded Concern Status LastModified by Organization Details LastModified Time None Recorded Advance Directives Directive None Recorded Payers Encounter Date Sequence Insurance Name Policy Number Policy Juárez Covered Member ID Juárez Member ID Guarantor Name 05/30/2021 1 [employer] [employer] [address] Steeples [id number] Dawna A Steeples 06/26/2022 1 [employer] [employer] [place] 113 Nixon Steeples [id number] Dawna A Steeples 12/28/2022 1 [employer] [employer] [place] 113 Nixon Steeples [id number] Dawna A Steeples 07/13/2023 1 [employer] 113 Nixon Steeples [id number] Dawna A Steeples Notes Date Note Type Note Provider Name and Address Organization Details Recorded Time 05/30/2021 text/html Annual Postmenop ausal ([facility])Reported bypatient.Patient Relationship To Practice:established patient Current Medical History:active medical problems stable; no recent surgeries or hospitalizations Relevant Family History:family history of breast cancer; no family history of ovarian cancer Menopausal Symptoms:Present: moderate HRT:not currently on HRT Vaginal Bleeding:no Sexually Active:Yes: same partner Mammogram:up-to-date Pap Smear +/- HPV Cotesting:up-to-date Thyroid/Lipid Screening:up-to-date Colonoscopy:up-to-date Bone Density Study:up-to-date Patient has:Primary Care Physician: yes (Dr. Rosas Arreaga) pt here for annual exam. [place] [address] to see her mo in law in [facility] Pt still seeing [facility] for high risk fm hx of breast ca. Weaned off HRT. Significant VM sx. Mild vaginal dryness. Using lube. Decline effexor as had in distant past. Does not like meds. Plans some genome study at [facility] to try to determine how much at risk she may be for breast ca. Strong fm hx but testing negative for know genes. Mammo and MRI yearly. Gets routine labs with PCP has had covid vaccines. had one shingles vaccine with 2 wk reaction. Declines further mother lives near her, 85 yo, dementia. [place] [address] [facility],[address], [place], [address], [place] [facility] 05/30/2021 15:25:25 06/26/2022 text/html Annual Postmenop ausal ([facility])Reported bypatient.Patient Relationship To Practice:established patient Current Medical History:active medical problems stable; no recent surgeries or hospitalizations Relevant Family History:family history of breast cancer; no family history of ovarian cancer Menopausal Symptoms:Present: moderate HRT:not currently on HRT Vaginal Bleeding:no Sexually Active:Yes: spouse Mammogram:up-to-date Pap Smear +/- HPV Cotesting:up-to-date Thyroid/Lipid Screening:up-to-date Colonoscopy:up-to-date Bone Density Study:up-to-date Patient has:Primary Care Physician: yes (Dr. Rosas Arreaga) pt here for annual exam. Just back from 1 month in [place] where they have a canal boat. Pt still seeing [facility] for high risk fm hx of breast ca. Weaned off HRT x 1 year now. Severe VM sx. Mild vaginal dryness. Using lube. Decline effexor as had in distant past. Does not like meds. Just completed genome testing at [facility] to try to determine how much at risk she may be for breast ca. Strong fm hx but testing negative for known genes. Mammo and MRI yearly. Has discussion about genome testing results next month. If told she cannot go on HRT she may consider prophylactic mastectomy Gets routine labs [place] [address] [facility],[address], [place], [address], [place] - [facility] 06/26/2022 13:14:15 12/28/2022 text/html 62yo patient wit h history of supracervical hysterectomy who presents after primary care physician noted a vaginal bump to the left wall. Patient reports she had an exam and was diagnosed with a yeast infection and told that she had a bump that looked like a pimple on the left vaginal wall. She denies bleeding, pain, discharge, or any symptoms. She also requests to switch her screening mammograms here. She previously was seen at [facility] in the high risk breast center, but had additional genetic screening (SNPs) and was told she is no longer considered high risk. Prior patient of [place] [address] [address] [facility],[address], [place], [address], [place] [facility] 12/28/2022 11:56:53 07/13/2023 text/html Dawna is a 62y o s/p NAP[place] who presents for an annual exam. She is sexually active with her . She denies dyspareunia or postcoital bleeding. She declines STD screening. She is up to date with her pap smear. She denies a history of abnormal pap smears. She has not had any PMB. She denies fevers, chills, nausea, emesis, diarrea, constipation or dysuria. She denies MUNIRA or UUI. She has an extensive family history of breast cancer, most closely in her mother, who is BRCA negative. She also has a family history of ovarian cancer in a materna aunt. She denies a family history of colon, uterine cancers. She has been seen at [facility]'s high risk breast cancer clinic and had SNP testing earlier this year. She was told she is no longer high risk, but does have biannual screening, alternating MRIs and mammograms. She takes Vitamin D but not calcium. She does her fasting labs with her PCP. Vaccines: s/p flu vaccine; waiting to have COVID vaccine as had COVID 2 months agoMammogram: olonoscopy: 11/2018; due in 5 years, EXA scan: 08/2021 secondary to her breaking her leg, [place] [address] [address] [facility],[address], [place], [address], [place] [facility] 07/13/2023 12:06:41 OBGyn Episode No OBEpisode recorded.
== END 2024-06-20 12:27 | disposition home or self-care (01) ==
LOC: NFLDREF 06-24 23:52
PROVIDERS: PCP Emergency Medicine; Referring Provider Emergency Medicine; Visit Provider Podiatrist
DX: Z79.899 Other long term (current) drug therapy (principal)
CPT/HCPCS: 80076

== ENCOUNTER 2024-07-27 06:59 | Emergency (ER) | payer BC, SELFPAY ==
--- OUTSIDE RECORDS SUMMARY | 2024-07-27 07:00 | XMS_ITS | Patient Health Record ---
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 Role Phone [place] [facility] [...] Problem Status W/U Status Risk Notes Problem [id number] Menopausal and female climacteric states (N95.1) Active confirmed Plan Of Treatment No Information Insurance Providers Payer Name Payer Address Payer Phone Subscriber Number Group Number Insured Name Patient Relationship to Insured Coverage Start Date Coverage End Date BCBS - (Client Bill) [address] [place] [address] [id number] Dawna Longoria Self - patient is the insured Medical (General) History Medical History History ICD Code Cutaneous Lupus Borderline Diabetic Surgical History Surgery Date(Month/Year) Gall bladder removal 2017 Umbilical Hernia Repair with mesh Supra cervical Hysterectomy w/left oopha rectomy 2003
--- OUTSIDE RECORDS SUMMARY | 2024-07-27 07:01 | XMS_ITS | Data Portability ---
Author Organization [facility], [id number] Address [address] [place] [address] Assessment Encounter Date Assessment Date Assessment LastModified [...] recommendations reviewed. Continue breast cancer screening per [facility]'s recommendations, alternating MRI and mammograms q6 months. [...] By Organization Details Last Modified Time 05/30/2021 [id number] - Encouraged breast self-awareness and monthly breast [...] - Return to clinic in 1 year [email or web address] Not available 05/30/2021 15:24:23 06/26/2022 [id number] - Encouraged breast self-awareness and monthly breast [...] use of HRT. Pt to discuss with [facility] next month - Return to clinic in 1 year [email or web address] Not available 06/26/2022 13:13:58 Reason for Referral None Reported. Results Created Date Observation Date Name Description Value Unit Range Abnormal Flag Note LastModifiedBy Organization Detail LastModifiedTime 02/03/2001/25/2021 MAMMO , scree bessy, tomos ynthe sis, bilat eral, w/ CAD No observ ation record ed. [email or web address] [facility] [address] [place] [address], [address], 02/07/2023 15:32:04 02/08/2002/07/2023 MAMMO , scree bessy, tomos ynthe sis, bilat eral No observ ation record ed. [email or web address] [id number], [address], 02/08/2023 08:53:29 02/08/2002/07/2023 lay lette r No observ ation record ed. STEVEN [id number] [address], [place], [address], 02/08/2023 16:42:21 Result Notes None recorded. Problems Name Problem SNOMED Code Status Onset Date Resolution Date Notes Provider Name and Address Organization Details Recorded Time Family history of breast cancer 404043072 Active 2020 mother 72. also several maternal aunts, all over 50, 4 cousin at 45. Genetic counseling was suggested to pt per records in 2008. 2017 per pt mother BRCA neg years ago. Now m cousins with breast ca. They plan genetic testing. Rec that pt see high risk breast ca clinic/cou nselor and do MRI/mammo q yr. 2018: pt saw [facility]. Getting MRI/mammo q yr. 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 Lupus erythemato sis. Rash, bx. flare off [place] [address] [address], [place], [address], [place] [facility] 1 15:21:39 Past history of gestationa l diabetes mellitus 550157301 Active 2020 x [place] [address] [address], [place], [address], [place] [facility] 1 15:21:56 Problem Notes None recorded. Procedures Surgical History Date Name Laterality Status Provider Name and Address Organization Details Recorded Time 02/01/20 23 Date of Last Mammogram completed Luciano Stern [facility] 02/08/2023 08:53:49 03/22/20 20 Date of Last Pap Smear completed Libertad Rice (TERMED) [facility] 03/25/2020 19:14:56 11/05/19 19 Date of Last Colonoscopy completed Rowena Stoddard [facility] 05/27/2021 17:21:14 non-surgical breast biopsy completed Bailey Iglesias(TERM ) [place] [facility] 06/26/2022 10:49:39 Removal of gallbladder completed Bailey Iglesias(TERM ) [place] [facility] 06/26/2022 10:49:39 salpingo-oophorec keron completed Bailey Iglesias(TERM ) [place] [facility] 06/26/2022 10:49:39 tooth extraction completed Bailey Iglesias(TERM ) [place] [facility] 06/26/2022 10:49:39 hernia repair completed Bailey Iglesias(TERM ) [place] [facility] 06/26/2022 10:49:39 laparoscopic supracervical hysterectomy completed Bailey Iglesias(TERM ) [place] [facility] 06/26/2022 10:49:39 Colonoscopy completed Bailey Iglesias(TERM ) [place] [facility] 06/26/2022 10:49:39 Imaging Results Imaging Date Name Status LastModified by Organiz ation Details LastModified Time 01/25/2021 MAMMO, screening, tomosynthesis, bilateral, w/ CAD completed [email or web address] [facility] [address] [place] [address], [address], 02/07/2023 15:32:04 02/07/2023 MAMMO, screening, tomosynthesis, bilateral completed [email or web address] [id number], [address], 02/08/2023 08:53:29 02/07/2023 lay letter completed STEVEN [id number] [address], [address], 02/08/2023 16:42:21 Procedure Notes None recorded. Medical Equipment None Reported. Allergies Allergen ID Allergen Name Allergen Category Reaction Reaction Severity Criticality Documentation Date Start Date Code Code System Note Provider Name and Address Organization Details Recorded Time 342160 Medicinal product containin g tetracycl ine structure and acting as antibacte rial agent (product) medicatio n Not available Not available Not available 03/12/2020 92939 1004 SNOMED *Note : 12/09 - Not Available [facility] 0 16:56:52 477859 fluconazo le medicatio n Not available Not available Not available 03/12/2020 4450 RxNorm *Note : 12/09 - Not Available [facility] 0 16:56:52 365490 bee pollen environme nt,medica tion Not available Not available Not available 03/12/2020 67121 7 RxNorm Not Available [facility] 0 16:56:52 088080 Substance with sulfonami de structure and antibacte rial mechanism of action (substanc e) medicatio n Not available Not available Not available 03/12/2020 12339 8003 SNOMED *Note : 12/09 - Not Available [facility] 0 16:56:53 205772 pertussis vaccine medicatio n Not available Not available Not available 03/12/2020 8080 RxNorm *Note : 12/09 - son is don jimenez honey gic Not Available [facility] 0 16:56:53 Medications Name Sig Start Date [...] Updated DateTime 05/30/2021 172.72 cm 25.1 kg/m2 41317.74 g 134 mm[Hg] 82 mm[Hg] Jeff Miner (TERMED) [facility] 1 14:57:18 Date Recorded Body height Body mass index (BMI) Body weight Systolic blood pressure Diastolic blood pressure Provider Name and Address Organization Details Last Updated DateTime 06/26/2022 172.72 cm 24.9 kg/m2 76759.15 g 138 mm[Hg] 82 mm[Hg] Bailey Iglesias( TERM) [facility] 2 10:55:57 Date Recorded Body height Body mass index (BMI) Body weight Systolic blood pressure Diastolic blood pressure Provider Name and Address Organization Details Last Updated DateTime 12/28/2022 172.72 cm 24.4 kg/m2 07399.65 g 132 mm[Hg] 86 mm[Hg] Rowena Stoddard [facility] 3 11:34:45 Date Recorded Body height Body mass index (BMI) Body weight Systolic blood pressure Diastolic blood pressure Provider Name and Address Organization Details Last Updated DateTime 07/13/2023 172.72 cm 24.8 kg/m2 02672.99 g 126 mm[Hg] 84 mm[Hg] Rowena Stoddard [facility] 11:29:20 Social History Question Answer Notes LastModified by [employer] Details LastModified Time Tobacco Smoking Status Former Smoker Rowena Stoddard [facility] 05/27/2021 17:19:31 What Is Your Level Of Alcohol Consumption? Occasional Information not available 12/28/2022 What Is Your Level Of Caffeine Consumption? Moderate 1c/day [email or web address] Information not available 07/13/2023 Which Illicit Or Recreational Drugs Have You Used? Denies Illicit Substance Abuse [email or web address] Information not available 07/13/2023 What Is Your [...] Functional Status Question Answer Note LastModified by [employer] Details LastModified Time What is your [...] Total 3 Immunizations Vaccine Type Date Status Note Provider Nam e and Address Organization Details Recorded Time Influenza, split virus, quadrivalent, preservative 4 completed Rowena Will null, [facility] 12/28/2022 08:18:29 Influenza, split virus, quadrivalent, preservative 8 completed [facility], [facility] 12/28/2022 08:18:29 Influenza, split virus, quadrivalent, preservative 7 completed Rowena Will null, [facility] 12/28/2022 08:18:29 Influenza, split virus, quadrivalent, preservative 9 completed Rowena Will null, [facility] 12/28/2022 08:18:29 Influenza, split virus, quadrivalent, preservative 6 completed Rowena Will null, [facility] 12/28/2022 08:18:29 zoster recombinant 9 completed Rowena Will null, [facility] 12/28/2022 08:18:29 zoster recombinant 8 completed Rowena Will null, [facility] 12/28/2022 08:18:29 COVID-19, mRNA, LNP-S, PF, 30 mcg/0.3 mL dose 1 completed [facility], [facility] 12/28/2022 08:18:29 COVID-19, mRNA, LNP-S, PF, 30 mcg/0.3 mL dose 1 completed Rowena Will null, [facility] 12/28/2022 08:18:29 COVID-19, mRNA, LNP-S, PF, 30 mcg/0.3 mL dose 1 completed Rowena Will null, [facility] 12/28/2022 08:18:29 COVID-19, mRNA, LNP-S, bivalent, PF, 30 mcg/0.3 mL dose 2 completed Rowena Will null, [place] [facility] 12/28/2022 08:18:29 influenza, unspecified formulation 1 completed Rowena Will null, [place] - [facility] 12/28/2022 08:18:29 influenza, unspecified formulation 0 completed [facility] null, [place] [facility] 12/28/2022 08:18:29 Td(adult) unspecified formulation 0 completed Rowena Will null, [place] [facility] 12/28/2022 08:18:29 Influenza, split virus, trivalent, preservative 8 completed Rowena Will null, [facility] 12/28/2022 08:18:29 Influenza, split virus, trivalent, PF 0 completed Rowena Will null, [place] [facility] 12/28/2022 08:18:29 Novel [id number] 9 completed Rowena Will null, [place] [facility] 12/28/2022 08:18:29 Td (adult), 5 Lf tetanus toxoid, preservative free, adsorbed 0 completed Rowena Will null, [place] [facility] 12/28/2022 08:18:29 Td (adult), 5 Lf tetanus toxoid, preservative free, adsorbed 8 completed Rowena Will null, [place] [facility] 12/28/2022 08:18:29 Hep B, adult 8 completed Rowena Will null, [place] [facility] 12/28/2022 08:18:29 Hep A, adult 4 completed Rowena Will null, [place] [facility] 12/28/2022 08:18:29 Hep A, ped/adol, 2 dose 8 completed Rowena Will null, [place] [facility] 12/28/2022 08:18:30 typhoid, ViCPs 4 completed Rowena Will null, [place] [facility] 12/28/2022 08:18:30 Influenza, split virus, quadrivalent, PF 0 completed Rowena Will null, [place] [facility] 12/28/2022 08:18:30 Influenza, split virus, quadrivalent, PF 9 completed Rowena Will null, [facility] 12/28/2022 08:18:30 Influenza, split virus, quadrivalent, PF 1 completed Rowena Will null, [place] [facility] 12/28/2022 08:18:30 Influenza, MDCK, quadrivalent, PF 2 completed Rowena Will null, [facility] 12/28/2022 11:32:55 Past Encounters Encounter ID Performer Location Encounter Start Date Encounter Closed Date Diagnosis/Indication Diagnosis SNOMED-CT Code Diagnosis ICD10 Code [id number] DAWNA CARRINGTON MD [address] ,[facility] [address] [facility] [place] [id number] 05/30/2021 14:39:14 05/30/2021 15:26:14 Family history of breast cancer 779433999 Z80.3 Gynecologi c examination 76871042 Z01.787 [id number] DAWNA CARRINGTON MD [address] ,[address] [facility] [id number] 06/26/2022 10:39:00 06/26/2022 11:38:05 Family history of breast cancer 151068695 Z80.3 Past pregn fozia history of gestational diabetes mellitus 609348063 Z86.32 Gynecologi c examination 54932277 Z01.419 Menopausal symptom 39886 002 N95.1 [id number] JIMMY AMCIAS MD [id number] ,[address] [facility] [id number] 12/28/2022 11:25:07 12/28/2022 11:59:21 Vaginal lesion 470521102 N94.89 Screening for malignant neoplasm of breast 623142236 Z12.39 [id number] LATONIA NGUYEN MD [id number] [place] ,[address] [place] [id number] 07/13/2023 11:15:29 07/13/2023 12:10:52 Gynecologic examination 51487123 Z01.419 Health Concerns Section Related Observation LastModified by Organization Detai ls LastModified Time None Recorded Concern Status LastModified by Organization Details LastModified Time None Recorded Advance Directives Directive None Recorded Payers Encounter Date Sequence Insurance Name Policy Number Policy Juárez Covered Member ID Juárez Member ID Guarantor Name 05/30/2021 1 [place] [employer] [address] [id number] Dawna A Steeples 06/26/2022 1 [place] [address] [id number] Dawna A Steeples 12/28/2022 1 [place] [address] [id number] Dawna A Steeples 07/13/2023 1 [place] [address] [id number] Dawna A Steeples Notes Date Note Type [...] to see her mo in law in [facility] Pt still seeing [facility] for high risk fm hx of breast ca. Weaned off HRT. Significant VM sx. Mild vaginal dryness. Using lube. Decline effexor as had in distant past. Does not like meds. Plans some genome study at [facility] to try to determine how much at risk she may be for breast ca. Strong fm hx but testing negative for know genes. Mammo and MRI yearly. Gets routine labs with PCP has had covid vaccines. had one shingles vaccine with 2 wk reaction. Declines further mother lives near her, 85 yo, dementia. [place] [address] [address] [facility],[address], [place], [address], [place] [facility] 05/30/2021 15:25:25 06/26/2022 text/html Annual Postmenop ausal [...] exam. Just back from 1 month in [facility] where they have a canal boat. Pt still seeing [facility] for high risk fm hx of breast ca. Weaned off HRT x 1 year now. Severe VM sx. Mild vaginal dryness. Using lube. Decline effexor as had in distant past. Does not like meds. Just completed genome testing at [facility] to try to determine how much at risk she may be for breast ca. Strong fm hx but testing negative for known genes. Mammo and MRI yearly. Has discussion about genome testing results next month. If told she cannot go on HRT she may consider prophylactic mastectomy Gets routine [place] [address] [address] [facility],[address], [place], [address], [place] [facility] 06/26/2022 13:14:15 12/28/2022 text/html 62yo patient wit [...] mammograms here. She previously was seen at [facility] in the high risk breast center, but had additional genetic screening (SNPs) and was told she is no longer considered high risk. Prior patient [place] [address] [address] [facility],[address], [place], [address], [facility] [place] [employer] 12/28/2022 11:56:53 07/13/2023 text/html Dawna is a [...] uterine cancers. She has been seen at [facility]'s high risk breast cancer clinic and had [...] agoMammogram: olonoscopy: 11/2018; due in 5 years, 4DEXA scan: 08/2021 secondary to her breaking her leg, [place] [id number] [address] [facility],[address], [place], [address], [place] [facility] 07/13/2023 12:06:41 OBGyn Episode No OBEpisode recorded.
[2024-07-27 07:05] VITALS: BP 150/91; PULSE 60; RESP 18; TEMP 36.3; O2SAT 95; BMI 24.0
--- NOTE | 2024-07-27 07:17 | ED_ITS ---
HPI - Chest Pain General Chief Complaint: Chest Pain <Roman Donato MD - Last Filed: 07/28/24 07:54> Stated Complaint: Chest pressure <Roman Donato MD - Last Filed: 07/28/24 07:54> Time Seen by Provider: 07/27/24 07:11 <Roman Donato MD - Last Filed: 07/28/24 07:54> History of Present Illness HPI narrative: Patient is a 63-year-old woman who comes in with Gregg days of substernal chest pain. She states that the chest pain has been exacerbated by stress which she has been under for many years due to her mother's Alzheimer's dementia. She has had no nausea no vomiting no fevers no chills no night sweats. No diaphoresis. No worsening with exertion. EKG done upon arrival with the patient having symptoms shows sinus rhythm with no acute ST or T-wave changes. Patient takes no chronic medications other than eyedrops and otherwise is in go od health. The pain is dull and a squeezing sensation in the middle anterior chest. <Roman Donato MD - Last Filed: 07/28/24 07:54> Related Data Home Medications: Home Medications ?Medication ?Instructions ?Recorded ?Confirmed cholecalciferol (vitamin D3) 50 50 mcg PO QDAY 07/06/22 06/20/24 mcg (2,000 unit) capsule Eye drops ophthalmic (eye) 07/04/23 06/20/24 testosterone 50 mg implant pellet mg implant 08/15/23 06/20/24 fluticasone propionate 50 1 spray intranasal QDAY 09/12/23 06/20/24 mcg/actuation nasal spray,suspension (Allergy Relief (fluticasone)) progesterone micronized 100 mg 100 mg PO QPM 09/12/23 06/20/24 capsule Estrogen/Test PO 01/14/24 06/20/24 Previous Rx's ?Medication ?Instructions ?Recorded leqhhjjaot-pepramiselflz-oebmgruh 1 - 2 cap PO Q4-6H PRN pain #30 08/08/23 50 mg-300 mg-40 mg capsule caps alprazolam 0.5 mg tablet 0.5 mg PO BID PRN anxiety #15 tabs 08/15/23 cefuroxime axetil 500 mg tablet 500 mg PO BID #28 tabs 04/15/24 <Roman Donato MD - Last Filed: 07/28/24 07:54> Allergies/Adverse Reactions: Allergies Allergy/AdvReac Type Severity Reaction Status Date / Time Sulfa (Sulfonamide Allergy Severe Anaphylaxis Verified 07/27/24 07:05 Antibiotics) fluconazole Allergy Mild Hives Verified 07/27/24 07:05 tetracycline Allergy Mild Hives Verified 07/27/24 07:05 INHALANT ANESTHESIA Allergy Intermediate Severe Uncoded 06/20/24 11:57 nausea only Pertussis vaccine Allergy Unknown Son is Uncoded 06/20/24 11:57 severely allergic she was told not to get pertussis Clavulanate AdvReac Severe Vomiting Uncoded 06/20/24 11:57 Neostrata Bionic face cream AdvReac Intermediate Rash Uncoded 06/20/24 11:57 <Roman Donato MD - Last Filed: 07/28/24 07:54> Review of Systems Status of ROS Reports: 10 or more systems reviewed and unremarkable except as noted in History and below <Roman Donato MD - Last Filed: 07/28/24 07:54> [facility] Medical History: Medical History Chronic tonsillitis ?J35.01 - Chronic tonsillitis (ICD-10) Seasonal allergies ?J30.2 - Other seasonal allergic rhinitis (ICD-10) Otitis media ?H66.90 - Otitis media, unspecified, unspecified ear (ICD-10) Viral URI ?J06.9 - Acute upper respiratory infection, unspecified (ICD-10) 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 ?T70.29XA - Other effects of high altitude, initial encounter (ICD-10) Mild intermittent asthma ?J45.20 - Mild intermittent asthma, uncomplicated (ICD-10) Normal stress echocardiography Family history of von Willebrand disease ?Z83.2 - Family history of diseases of the blood and blood-forming organs and certain disorders involving the immune mechanism (ICD-10) COVID-19 (~05/05/23) ?U07.1 - COVID-19 (ICD-10) Recurrent epistaxis ?R04.0 - Epistaxis (ICD-10) Mitral valve sclerosis ?I05.8 - Other rheumatic mitral valve diseases (ICD-10) <Roman Donato MD - Last Filed: 07/28/24 07:54> Surgical History: Surgical History S/P ORIF (open reduction internal fixation) fracture (09/01/21) ?Z98.890 - Other specified postprocedural states (ICD-10) ?Z87.81 - Personal history of (healed) traumatic fracture (ICD-10) History of umbilical hernia repair ?Z98.890 - Other specified postprocedural states (ICD-10) ?Z87.19 - Personal history of other diseases of the digestive system (ICD-10) History of laparoscopic cholecystectomy ?Z90.49 - Acquired absence of other specified parts of digestive tract (ICD- 10) History of hysterectomy with oophorectomy History of esophagogastroduodenoscopy (EGD) ?Z98.890 - Other specified postprocedural states (ICD-10) <Roman Donato MD - Last Filed: 07/28/24 07:54> Family History: Family History Mother Breast cancer Stroke Diabetes High blood pressure Heart disease History of hyperlipidemia Family/Other Breast cancer <Roman Donato MD - Last Filed: 07/28/24 07:54> Social History: Social History Narrative: Does not use illicit drugs Non-smoker Occasional alcohol consumption Smoking Status: Unknown if ever smoked Do you use any of these nicotine containing products: None Second hand tobacco smoke exposure: No How often do you have a drink containing alcohol: monthly or less AUDIT-C Alcohol total score: 1 Non-prescribed substance use: denies use <Roman Donato MD - Last Filed: 07/28/24 07:54> Exam Narrative Exam Narrative: EXAM GENERAL: Patient appears comfortable and well. EYES: No scleral icterus. LYMPH: No supraclavicular or cervical lymphadenopathy. SKIN: Visible skin seen during exam normal or with benign process only. EXT: No dependent lower extremity pedal edema. HEART: Regular rate and rhythm with no murmurs, rubs, or gallops. LUNGS: Clear to auscultation bilaterally with no crackles or wheezes. ABD: Soft, non tender, non distended. PSYCH: Good eye contact, speech is not pressured. <Roman Donato MD - Last Filed: 07/28/24 07:54> Const Vital Signs, click to edit/add: Vital Signs - 24 hr 07/27/24 08:00 07/27/24 08:30 07/27/24 08:55 Temperature Pulse Rate 70 69 66 Pulse Rate [Pulse Oximeter] Respiratory Rate 14 16 14 Blood Pressure 140/90 H Blood Pressure [Right Upper Arm] Pulse Oximetry 94 96 97 07/27/24 08:56 Temperature 97.3 F L Pulse Rate Pulse Rate [Pulse Oximeter] 60 Respiratory Rate 18 Blood Pressure Blood Pressure [Right Upper Arm] 150/91 H Pulse Oximetry <Roman Donato MD - Last Filed: 07/28/24 07:54> Vital Signs - 24 hr 07/27/24 08:00 07/27/24 08:30 07/27/24 08:55 Temperature Pulse Rate 70 69 66 Pulse Rate [Pulse Oximeter] Respiratory Rate 14 16 14 Blood Pressure 140/90 H Blood Pressure [Right Upper Arm] Pulse Oximetry 94 96 97 07/27/24 08:56 Temperature 97.3 F L Pulse Rate Pulse Rate [Pulse Oximeter] 60 Respiratory Rate 18 Blood Pressure Blood Pressure [Right Upper Arm] 150/91 H Pulse Oximetry <Bill Iglesias MD - Last Filed: 07/27/24 08:52> Course Course ED Course: Patient seen and examined. EKG reviewed. Troponin D-dimer CBC basic metabolic panel ordered. <Roman Donato MD - Last Filed: 07/28/24 07:54> Reevaluation(s) Reevaluation #1: Patient signed over to Dr. Iglesias at shift change-8:15 a.m.. I recheck the patient is a 45. She was resting comfortably in bed. Chest pain- free. Vital signs stable. Constitutional: Appears well-developed and well-nourished. Alert. Conversant. Non toxic. HENT: Head: Atraumatic. Nose: Nose normal. Mouth/Throat: Oral mucosa is clear and moist. no trismus. Eyes: Conjunctivae normal. EOM normal. Pupils equal, round, and reactive to light. No scleral icterus. Neck: Normal range of motion. Neck supple. No tracheal deviation present. No JVD Cardiovascular: Normal rate, regular rhythm. No gallop. No friction rub. No murmur heard. Symmetric radial artery pulses Pulmonary/Chest: Effort normal. No stridor. No respiratory distress. No wheezes. No rales. No rhonchi . No tenderness, but she does say that there is a sore area that she can rub on her left upper sternal border. No bruising. No rash. Musculoskeletal: RUE: Normal range of motion. No tenderness. No deformity LUE: Normal range of motion. No tenderness. No deformity RLE: Normal range of motion. No edema. No tenderness. No deformity LLE: Normal range of motion. No edema. No tenderness. No deformity Neurological: Alert and oriented to person, place, and time. Normal strength. CN II-VII intact. No sensory deficit. GCS eye subscore is 4. GCS verbal subscore is 5. GCS motor subscore is 6. Normal coordination Skin: Skin is warm and dry. No rash noted. No pallor. Normal capillary refill. Psychiatric: Normal mood. Normal affect. Does not or stress with her mother's Alzheimer's. Has a history of panic attacks but feels like her recent chest pains are different than those because her panic attacks traditional ER associated with palpitations and racing heart. Medical decision This patient presents to the ER today for evaluation of chest pain that is been occurring off and on for about 10 days without any pattern. No correlation to exertion, food, position.. Differential was broad. No evidence of palpitations, syncope or other cardiac dysrhythmia. We considered possible ACS, however workup with EKG and troponin is negative. HEART score is 1. Given time since onset of symptoms, I do not think the patient needs to be admitted for further sets of enzymes. EKG shows no evidence for pericarditis. Clinical presentation not suggestive of myocarditis. Chest x-ray shows no evidence for pneumonia, pneumothorax, pulmonary edema, pleural effusion, rib fracture, cardiomegaly. Mediastinum is normal on the x-ray. The patient has no ripping or tearing pain through to the back and has symmetric pulses on exam, no other acute neuro findings so I doubt aortic dissection. Risk of radiation and contrast exposure would outweigh the benefit of CT angiogram. We considered PE for this patient. D-dimer is normal. At this point risk of radiation and contrast nephropathy would outweigh the benefit of CT PA. No wheezing or bronchospasm to suggest COPD/asthma. No signs of chest wall cellulitis, shingles, injury. With reasonable clinical confidence, I think the patient is safe for outpatient follow up. Discussed return precautions. Questions answered. Patient voices comfort with the plan. <Bill Iglesias MD - Last Filed: 07/27/24 08:52> Vital Signs Vital signs: Initial Vital Signs Temperature 97.3 F L 07/27/24 07:05 Temperature Source Temporal Artery Scan 07/27/24 07:05 Pulse Rate 60 07/27/24 07:05 Pulse Rhythm Regular 07/27/24 07:05 Respiratory Rate 18 07/27/24 07:05 Blood Pressure 150/91 H 07/27/24 07:05 Blood Pressure Mean 110 H 07/27/24 07:05 Blood Pressure Position Supine 07/27/24 07:05 Pulse Oximetry 95 07/27/24 07:05 Oxygen Delivery Method Room Air 07/27/24 07:05 Vital Signs Temperature 97.3 F L 07/27/24 07:05 Pulse Rate 60 07/27/24 07:05 Respiratory Rate 18 07/27/24 07:05 Blood Pressure 150/91 H 07/27/24 07:05 Pulse Oximetry 95 07/27/24 07:05 Oxygen Delivery Method Room Air 07/27/24 07:05 Temperature 97.3 F L 07/27/24 08:56 Pulse Rate 60 07/27/24 08:56 Respiratory Rate 18 07/27/24 08:56 Blood Pressure 150/91 H 07/27/24 08:56 Pulse Oximetry 97 07/27/24 08:55 Oxygen Delivery Method Room Air 07/27/24 07:05 <Roman Donato MD - Last Filed: 07/28/24 07:54> Initial Vital Signs Temperature 97.3 F L 07/27/24 07:05 Temperature Source Temporal Artery Scan 07/27/24 07:05 Pulse Rate 60 07/27/24 07:05 Pulse Rhythm Regular 07/27/24 07:05 Respiratory Rate 18 07/27/24 07:05 Blood Pressure 150/91 H 07/27/24 07:05 Blood Pressure Mean 110 H 07/27/24 07:05 Blood Pressure Position Supine 07/27/24 07:05 Pulse Oximetry 95 07/27/24 07:05 Oxygen Delivery Method Room Air 07/27/24 07:05 Vital Signs Temperature 97.3 F L 07/27/24 07:05 Pulse Rate 60 07/27/24 07:05 Respiratory Rate 18 07/27/24 07:05 Blood Pressure 150/91 H 07/27/24 07:05 Pulse Oximetry 95 07/27/24 07:05 Oxygen Delivery Method Room Air 07/27/24 07:05 Temperature 97.3 F L 07/27/24 08:56 Pulse Rate 60 07/27/24 08:56 Respiratory Rate 18 07/27/24 08:56 Blood Pressure 150/91 H 07/27/24 08:56 Pulse Oximetry 97 07/27/24 08:55 Oxygen Delivery Method Room Air 07/27/24 07:05 <Bill Iglesias MD - Last Filed: 07/27/24 08:52> MDM - Chest Pain Lab Data Labs: Lab Results 07/27/24 Range/Units 07:34 WBC 3.74 L (4.50-11.00) K/uL RBC 4.28 (4.00-5.20) m/uL Hgb 14.1 (12.0-16.0) gm/dL Hct 42.6 (33.0-51.0) % MCV 100 (80-100) fL MCH 33 (26-34) pg MCHC 33 (32-36) gm/dL RDW Coeff of Kellee 11.4 L (11.5-15.5) % Plt Count 222 (140-440) K/uL Neut % (Auto) 43.6 (42.0-72.0) % Lymph % (Auto) 38.8 (20-44) % [place] % (Auto) 13.9 H (0.0-11.0) % Eos % (Auto) 2.9 (0.0-7.0) % Baso % (Auto) 0.5 (0.0-3.0) % Neut # (Auto) 1.60 L (1.7-7.0) K/uL Lymph # (Auto) 1.50 (0.90-2.90) K/uL [place] # (Auto) 0.50 (0.00-0.90) K/UL Eos # (Auto) 0.10 (0.00-0.50) K/uL Baso # (Auto) 0.00 (0.00-0.30) K/uL Abs Immat Gran (auto) 0.00 (0.00-0.30) K/uL Imm/Tot Granulo (auto) 0.3 % D-Dimer Quant (PE/DVT) < 0.27 (0.00-0.50) ug/ml Sodium 137 (135-149) mmol/L Potassium 4.0 (3.6-5.1) mmol/L Chloride 104 (96-114) mmol/L Carbon Dioxide 28 (20-32) mmol/L Anion Gap 5 L (7-15) mEq/L BUN 16 (7-30) mg/dL Creatinine 0.7 (0.5-1.5) mg/dL Estimated Creat Clear 58.09 Estimated GFR 97 ml/min Glucose 110 (60-115) mg/dL Calcium 9.0 (8.4-10.6) mg/dL Troponin I < 0.01 L (0.01-0.04) ng/mL <Roman Donato MD - Last Filed: 07/28/24 07:54> Lab Results 07/27/24 Range/Units 07:34 WBC 3.74 L (4.50-11.00) K/uL RBC 4.28 (4.00-5.20) m/uL Hgb 14.1 (12.0-16.0) gm/dL Hct 42.6 (33.0-51.0) % MCV 100 (80-100) fL MCH 33 (26-34) pg MCHC 33 (32-36) gm/dL RDW Coeff of Kellee 11.4 L (11.5-15.5) % Plt Count 222 (140-440) K/uL Neut % (Auto) 43.6 (42.0-72.0) % Lymph % (Auto) 38.8 (20-44) % [place] % (Auto) 13.9 H (0.0-11.0) % Eos % (Auto) 2.9 (0.0-7.0) % Baso % (Auto) 0.5 (0.0-3.0) % Neut # (Auto) 1.60 L (1.7-7.0) K/uL Lymph # (Auto) 1.50 (0.90-2.90) K/uL [place] # (Auto) 0.50 (0.00-0.90) K/UL Eos # (Auto) 0.10 (0.00-0.50) K/uL Baso # (Auto) 0.00 (0.00-0.30) K/uL Abs Immat Gran (auto) 0.00 (0.00-0.30) K/uL Imm/Tot Granulo (auto) 0.3 % D-Dimer Quant (PE/DVT) < 0.27 (0.00-0.50) ug/ml Sodium 137 (135-149) mmol/L Potassium 4.0 (3.6-5.1) mmol/L Chloride 104 (96-114) mmol/L Carbon Dioxide 28 (20-32) mmol/L Anion Gap 5 L (7-15) mEq/L BUN 16 (7-30) mg/dL Creatinine 0.7 (0.5-1.5) mg/dL Estimated Creat Clear 58.09 Estimated GFR 97 ml/min Glucose 110 (60-115) mg/dL Calcium 9.0 (8.4-10.6) mg/dL Troponin I < 0.01 L (0.01-0.04) ng/mL <Bill Iglesias MD - Last Filed: 07/27/24 08:52> Discharge Plan Discharge Clinical Impression: Chest pain <Roman Donato MD - Last Filed: 07/28/24 07:54> Patient Disposition: Home, Self-Care <Roman Donato MD - Last Filed: 07/28/24 07:54> Condition: Stable <Roman Donato MD - Last Filed: 07/28/24 07:54> Instructions: Chest Pain (ED) <Roman Donato MD - Last Filed: 07/28/24 07:54> Additional Instructions: Please follow-up with your doctor for recheck within 1 week. Remember, if you have more episodes of pain, worsening pain, shortness of breath or other new symptoms, or if you have any concerns please come back to the emergency room right away to be rechecked. <Roman Donato MD - Last Filed: 07/28/24 07:54> Prescriptions: No Action cholecalciferol (vitamin D3) 50 mcg (2,000 unit) capsule 50 mcg PO QDAY progesterone micronized 100 mg capsule 100 mg PO QPM fluticasone propionate [Allergy Relief (fluticasone)] 50 mcg/actuation spray,suspension 1 spray intranasal QDAY Rx Instructions: administer into each nostril cefuroxime axetil 500 mg tablet 500 mg PO BID Qty: 28 0RF Eye drops ophthalmic (eye) Patient Comments: OTC zfzumucytu-xdjjyqdzvpcnh-ewau 50-300-40 mg capsule 1 - 2 cap PO Q4-6H MDD 4 PRN (Reason: pain) Qty: 30 0RF Rx Instructions: MAX 6/DAY Estrogen/Test PO alprazolam 0.5 mg tablet 0.5 mg PO BID PRN (Reason: anxiety) Qty: 15 0RF Rx Instructions: 1/2 to 1 tab as needed for anxiety/panic attacks. testosterone 50 mg pellet implant <Roman Donato MD - Last Filed: 07/28/24 07:54> Follow Up/Referrals: Shelli Garay MD [Primary Care Provider] - <Roman Donato MD - Last Filed: 07/28/24 07:54> Stand Alone Forms: MyHealth Info Instructions <Roman Donato MD - Last Filed: 07/28/24 07:54>
--- NOTE | 2024-07-27 07:19 | CRLHL7_ITS ---
For Patients: As a result of the Century Cures Act, medical imaging exams and procedure reports are released immediately into your electronic medical record. You may view this report before your referring provider. If you have questions, please contact your health care provider. INDICATION: Chest pain. TECHNIQUE: Chest 1 views. COMPARISON: None. FINDINGS: Cardiovasculature and mediastinum: Heart size is normal. Unremarkable mediastinum. Lungs and pleural spaces: Lungs are clear. No sign of infiltrate or mass. No sign of pleural effusion. No pneumothorax. Bones and soft tissues: No significant findings. IMPRESSION: Negative chest. Dictated by Audi Shah MD @ 07/27/2024 7:49:59 AM (Electronically Signed)
[2024-07-27 07:43] LABS: Basophils Percent Auto 0.5 % (0.0-3.0); Eosinophils Percent Auto 2.9 % (0.0-7.0); Hematocrit 42.6 % (33.0-51.0); Hemoglobin* 14.1 gm/dL (12.0-16.0); Immature Granulocytes Pct Auto 0.3 %; Lymphocytes Percent Auto 38.8 % (20-44); Mean Corpuscular HGB Conc 33 gm/dL (32-36); Mean Corpuscular Hemoglobin 33 pg (26-34); Mean Corpuscular Volume 100 fL (80-100); Monocytes Percent Auto 13.9 % (0.0-11.0); Neutrophils Percent Auto 43.6 % (42.0-72.0); Platelet Count* 222 K/uL (140-440); RDW Coefficient of Variation % 11.4 % (11.5-15.5); Red Blood Count 4.28 m/uL (4.00-5.20); White Blood Count* 3.74 K/uL (4.50-11.00)
[2024-07-27 07:55] LABS: Slide Review Reflex No
[2024-07-27 07:58] LABS: Chloride* 104 mmol/L (96-114); Sodium* 137 mmol/L (135-149)
[2024-07-27 08:00] VITALS: PULSE 70; RESP 14; O2SAT 94
[2024-07-27 08:01] LABS: Anion Gap 5 mEq/L (7-15); Blood Urea Nitrogen* 16 mg/dL (7-30); Carbon Dioxide* 28 mmol/L (20-32); Creatinine* 0.7 mg/dL (0.5-1.5); Est. Creatinine Clearance* 58.09; Estimated Glomerular Filt Rate 97 ml/min; Glucose* 110 mg/dL (60-115)
[2024-07-27 08:15] LABS: Troponin I* < 0.01 ng/mL (0.01-0.04)
[2024-07-27 08:18] LABS: D Dimer Quantitative* < 0.27 ug/ml (0.00-0.50)
[2024-07-27 08:30] VITALS: PULSE 69; RESP 16; O2SAT 96
[2024-07-27 08:55] VITALS: BP 140/90; PULSE 66; RESP 14; O2SAT 97
[2024-07-27 08:56] VITALS: BP 150/91; PULSE 60; RESP 18; TEMP 36.3
== END 2024-07-27 08:57 | disposition home or self-care (01) ==
PROVIDERS: Internal Medicine; Emergency Provider Emergency Medicine; PCP Emergency Medicine
DX: R07.9 Chest pain, unspecified (principal)
CPT/HCPCS: 36415; 71045; 80048; 84484; 85025; 85379; 99283; 99284

== ENCOUNTER 2024-12-19 08:38 | Outpatient (CLI) | payer BC, SELFPAY | END 2024-12-19 08:39 | disposition home or self-care (01) | LOC: NFLDREF 12-26 00:42 | PROVIDERS: PCP Emergency Medicine; Referring Provider Emergency Medicine; Visit Provider Emergency Medicine | DX: Z00.00 Encounter for general adult medical examination without abnormal findings (principal); Z13.228 Encounter for screening for other metabolic disorders; Z13.6 Encounter for screening for cardiovascular disorders | CPT/HCPCS: 80048; 80061 ==

== ENCOUNTER 2025-02-05 09:43 | Outpatient (CLI) | payer BC, SELFPAY | END 2025-02-05 09:44 | disposition home or self-care (01) | LOC: NFLDREF 02-10 03:45 | PROVIDERS: PCP Emergency Medicine; Referring Provider Emergency Medicine; Visit Provider Emergency Medicine | DX: D75.89 Other specified diseases of blood and blood-forming organs (principal); Z13.21 Encounter for screening for nutritional disorder; Z13.29 Encounter for screening for other suspected endocrine disorder | CPT/HCPCS: 82607; 82746; 84443 ==

== ENCOUNTER 2025-04-01 07:46 | Outpatient (CLI) | payer BC, SELFPAY | END 2025-04-01 07:47 | disposition home or self-care (01) | LOC: RAD 07:46 | PROVIDERS: PCP Family Medicine; Visit Provider Physician Assistant Medical | DX: I47.20 Ventricular tachycardia, unspecified (principal); R00.2 Palpitations | CPT/HCPCS: 93306 ==

== ENCOUNTER 2025-04-03 12:19 | Outpatient (CLI) | payer BC, SELFPAY | END 2025-04-03 12:20 | disposition home or self-care (01) | LOC: NFLDREF 04-07 04:22 | PROVIDERS: PCP Family Medicine; Referring Provider Family Medicine; Visit Provider Nurse Practitioner Family | DX: R30.0 Dysuria (principal) | CPT/HCPCS: 87086 ==